=== PATIENT | female | born 1935 | race Two or more races ===

== ENCOUNTER 2020-01-16 21:18 | Inpatient (IN) | payer OTHER ==
[~2020-01-16] VITALS: Ht 157.5 cm; Wt 76.7 kg
[2020-01-16] MEDS ORDERED: ONDANSETRON HCL 4 MG/2 ML VIAL IV ONE (22:30)
[2020-01-16] MEDS ORDERED: MORPHINE SULF INJ 2 MG/ML SYRINGE 1ML IV ONE (22:30)
[2020-01-16 22:33] LABS: Basophils # (auto) 0 10 ^3/uL (0-0.2); Basophils % (auto) 0.1 % (0.0-2.0); Eosinophils # (auto) 0 10 ^3/uL (0-0.8); Monocytes # (auto) 0.9 10 ^3/uL (0-1.3)
[2020-01-16 22:35] LABS: Hematocrit 27.4 % (36.0-46.0); Lymphocytes # (auto) 0.8 10 ^3/uL (0.4-5.4); Lymphocytes % (auto) 6.1 % (10.0-50.0); Mean Corpuscular Hemoglobin 26.9 pg (28.0-32.0); Mean Corpuscular Hgb Conc. 32.9 g/dL (32.0-36.0); Mean Corpuscular Volume 81.9 fL (80.0-100.0); Monocytes % (auto) 6.4 % (0.0-12.0); Neutrophils # (auto) 11.9 10 ^3/uL (1.6-8.6); Neutrophils % (auto) 87.4 % (37.0-80.0); Platelet Count (auto) 283 10^3/uL (140-450); Red Blood Cells 3.35 10^6/uL (4.0-5.20); Red Cell Distribution Width 15.8 % (11.8-14.3); White Blood Cell 13.6 10^3/uL (4.4-10.8)
[2020-01-16 22:48] LABS: INR 1.35 (0.9-1.15); Partial Thromboplastin Time 30.9 sec (23.64-32.05)
[2020-01-16 22:51] LABS: Albumin 3.1 g/dL (3.4-5.0); BUN/Creatinine Ratio 23.2; Calcium 8.2 mg/dL (8.5-10.1); Potassium 3.9 mmol/L (3.5-5.1)
[2020-01-16 23:00] LABS: Bilirubin, Total 0.6 mg/dL (0.2-1.0); Total Protein 7.2 g/dL (6.4-8.2)
[2020-01-17] VITALS (7 sets, daily range): BP systolic 122–148; BP diastolic 52–61
[2020-01-17] MEDS ORDERED: TEMAZEPAM 15 MG CAP PO PRN (00:45)
[2020-01-17] MEDS ORDERED: ACETAMINOPHEN 325 MG TAB PO PRN (00:45)
[2020-01-17] MEDS ORDERED: DEXTROSE (50%) 50ML SYRG IV PRN (00:45)
[2020-01-17] MEDS ORDERED: ONDANSETRON HCL 4 MG/2 ML VIAL IV PRN (00:45)
[2020-01-17] MEDS: MORPHINE SULFATE 4 MG/ML SYR/VIAL IV PRN ×2 (01:44→06:54)
--- NOTE | 2020-01-17 02:00 | NUR ---
PATIENT ARRIVED FROM THE EMERGENCY ROOM TO THE UNIT VIA GURNEY. SHE IS UNABLE TO AMBULATE AT THIS TIME DUE TO THE FRACTURE. SHE IS AO X4 AND ON ROOM AIR. SHE DOES NOT HAVE ANY CHEST PAIN OR SHORTNESS OF BREATH. SHE DOES REPORT PAIN TO THE RIGHT HIP AT THE MOMENT BUT SAYS IT'S ONLY BECAUSE WE JUST TRANSFERRED HER FROM THE GURNEY TO THE BED. BED IS LOCKED IN LOWEST POSITION WITH SIDE RAILS UP X2. WILL CONTINUE TO MONITOR.
[2020-01-17 02:08] LABS: Urine Amorphous Crystal FEW /hpf (None Seen); Urine Bacteria MOD /hpf (None Seen); Urine Blood 2+ /uL (Negative); Urine Hyaline Cast FEW /lpf (0 - 2); Urine WBC 23 /hpf (0 - 5)
[2020-01-17] MEDS ORDERED: FURO20TA3 PO (02:56)
[2020-01-17] MEDS ORDERED: ASCO500T11 PO (02:56)
[2020-01-17] MEDS ORDERED: OMEG100078 PO (02:56)
[2020-01-17] MEDS ORDERED: METF1000 PO (02:56)
[2020-01-17] MEDS ORDERED: GLIM4TAB42 PO (02:56)
[2020-01-17] MEDS ORDERED: MELO1TAB73 PO (02:56)
[2020-01-17] MEDS ORDERED: METO-169 PO (02:56)
[2020-01-17] MEDS ORDERED: CHOL20004 PO (02:56)
[2020-01-17] MEDS ORDERED: SITA100T7 PO ×2 (02:56)
[2020-01-17] MEDS ORDERED: LOVA40TA72 PO (02:56)
[2020-01-17] MEDS ORDERED: AMLO5TAB15 PO (02:56)
[2020-01-17] MEDS: ACCU-CHEK COMFORT CURVE STRIP VI SCH ×3 (05:57→17:58)
[2020-01-17] MEDS: InsuLIN REG 1unit/0.01ml Soln (100units/ml) SC SCH ×3 (05:58→16:47)
--- NOTE | 2020-01-17 06:38 | NUR ---
ANDREW (GRAND DAUGHTER) CALLED AND ASKED IF SHE COULD COME SEE THE PATIENT. I EXPLAINED OUR CURRENT VISITATION POLICY. SHE SAID THAT THE ER DOCTOR SAID THAT SHE WOULD NEED TO HAVE SURGERY DONE TO HER LEG. I EXPLAINED TO HER SINCE WE DO NOT ALLOW VISITORS AT THIS TIME THAT THE DOCTOR WILL CALL AND EXPLAIN THE PROCEDURE IN DETAIL AND ANSWER ALL QUESTIONS AT THAT TIME. SHE SAYS SHE WANTS TO BE CALLED BECAUSE SHE SAYS THAT THE PATIENT DOESN'T REALLY UNDERSTAND [place] THAT WELL. [phone]
[2020-01-17] MEDS: LOSARTAN POTASSIUM 50 MG TAB PO SCH (09:00)
[2020-01-17] MEDS: amLODIPine BESYLATE 5 MG TAB PO SCH (09:00)
[2020-01-17] MEDS: PANTOPRAZOLE 40 MG TAB PO SCH (09:00)
[2020-01-17] MEDS: HYDROcodone-ACET 5/325MG TAB PO PRN ×3 (09:06→20:51)
[2020-01-17] MEDS: ATORVASTATIN 20 MG TAB PO SCH (22:06)
[2020-01-18] MEDS: MORPHINE SULFATE 4 MG/ML SYR/VIAL IV PRN ×2 (03:27→07:55)
[2020-01-18 05:00] VITALS: BP 134/75
[2020-01-18 05:53] LABS: Basophils # (auto) 0.1 10 ^3/uL (0-0.2); Basophils % (auto) 0.5 % (0.0-2.0); Eosinophils # (auto) 0.4 10 ^3/uL (0-0.8); Eosinophils % (auto) 3.2 % (0.0-7.0); Hematocrit 24.8 % (36.0-46.0); Hemoglobin 8.1 g/dL (12.2-16.2); Lymphocytes # (auto) 1.4 10 ^3/uL (0.4-5.4); Lymphocytes % (auto) 12.3 % (10.0-50.0); Mean Corpuscular Hemoglobin 26.7 pg (28.0-32.0); Mean Corpuscular Hgb Conc. 32.7 g/dL (32.0-36.0); Mean Corpuscular Volume 81.6 fL (80.0-100.0); Monocytes # (auto) 0.8 10 ^3/uL (0-1.3); Monocytes % (auto) 6.7 % (0.0-12.0); Neutrophils # (auto) 9.1 10 ^3/uL (1.6-8.6); Neutrophils % (auto) 77.3 % (37.0-80.0); Platelet Count (auto) 266 10^3/uL (140-450); Red Blood Cells 3.04 10^6/uL (4.0-5.20); Red Cell Distribution Width 15.9 % (11.8-14.3); White Blood Cell 11.7 10^3/uL (4.4-10.8)
[2020-01-18] MEDS: InsuLIN REG 1unit/0.01ml Soln (100units/ml) SC SCH ×4 (06:00→18:51)
[2020-01-18 06:07] LABS: INR 1.25 (0.9-1.15); Partial Thromboplastin Time 33.4 sec (23.64-32.05)
[2020-01-18 06:11] LABS: Albumin 2.9 g/dL (3.4-5.0); Calcium 8.3 mg/dL (8.5-10.1); Potassium 3.9 mmol/L (3.5-5.1)
[2020-01-18 06:15] LABS: BUN/Creatinine Ratio 20.5; Bilirubin, Total 0.5 mg/dL (0.2-1.0); Total Protein 6.8 g/dL (6.4-8.2)
[2020-01-18] MEDS: ACCU-CHEK COMFORT CURVE STRIP VI SCH ×5 (06:44→23:58)
--- NOTE | 2020-01-18 07:30 | NUR ---
Opening Shift Note Assumed care of patient, awake and alert. No S/S of distress/SOB or pain. Instructed on POC and to call for assist PRN, will continue to monitor for changes Q1hr and PRN.
--- NOTE | 2020-01-18 08:25 | NUR ---
ECHO SPOKE TO DR WHITE. ECHO IS GOOD. PT CLEARED FOR SURGERY.
[2020-01-18 09:00] VITALS: BP 129/52
[2020-01-18] MEDS: PANTOPRAZOLE 40 MG TAB PO SCH (09:18)
[2020-01-18] MEDS: amLODIPine BESYLATE 5 MG TAB PO SCH (09:20)
[2020-01-18] MEDS: LOSARTAN POTASSIUM 50 MG TAB PO SCH (09:20)
--- NOTE | 2020-01-18 10:00 | NUR ---
HOME MEDICATION SENT BACK WITH PT'S GRANDDAUGHTER
[2020-01-18] MEDS: HYDROcodone-ACET 5/325MG TAB PO PRN ×3 (10:07→22:03)
--- NOTE | 2020-01-18 10:19 | NUR ---
RECEIVED A CALL FROM [employer] PT'S GRANDSON IS IN THE MAIN LOBBY. .PER GRANDSON, DR ALLISON TOLD HIM TO COME TO THE HOSPITAL SO HE CAN TALK TO HIM AFTER THE PATIENT'S SURGERY IS OVER. GRANDSON WILL BE WAITING IN THE MAIN LOBBY. WILL LET WOOD PATTERNMAKER KNOW.
[2020-01-18] MEDS ORDERED: SUCCINYLCHOLINE CHLORIDE 20 MG/ML 10ML VIAL IV ONE (11:43)
[2020-01-18] MEDS ORDERED: LIDOCAINE 1% (LOCAL ANESTH.) PF 5ml SDV ONE (11:43)
[2020-01-18] MEDS ORDERED: ETOMIDATE (2MG/ML) 20ML VIAL IV ONE (11:46)
[2020-01-18] MEDS ORDERED: MIDAZOLAM HCL 1MG/1ML-2 ML VIAL ONE (11:46)
[2020-01-18] MEDS ORDERED: ROCURONIUM 10MG/ML 10ML VIAL IV ONE (11:49)
[2020-01-18] MEDS ORDERED: NALOXONE HCL 0.4 MG/ML VIAL IV PRN (12:30)
[2020-01-18] MEDS ORDERED: ONDANSETRON HCL 4 MG/2 ML VIAL IV PRN (12:30)
[2020-01-18] MEDS ORDERED: ACCU-CHEK COMFORT CURVE STRIP VI ONE (12:30)
[2020-01-18] MEDS ORDERED: HYDROmorphone HCL 2 MG/ML VL IV PRN (12:30)
[2020-01-18] MEDS ORDERED: NEOSTIGMINE 1 MG/ML INJ (10mg/10ML VIAL) ONE (12:41)
[2020-01-18] MEDS ORDERED: GLYCOPYRROLATE 0.2 MG/ML 1ML VIAL ONE (12:41)
[2020-01-18] MEDS: SODIUM CHLOR 0.9% PF (SALINE LOCK) 10ML VIAL/SYR IV SCH ×2 (14:30→22:03)
[2020-01-18] MEDS: LACTATED RINGER'S 1,000 ML IV SCH ×2 (14:30→22:24)
--- NOTE | 2020-01-18 15:20 | NUR ---
Assessment Patient is an 85-year-old female who is alert and oriented. Unable to speak to patient she was getting a procedure done. Assessment was completed with patient son Alvaro ). Per Alvaro prior to admission patient lived home with him and functioned independently. Per Alvaro patient care for her own ADLs. Per Alvaro patient does not have any medical equipment now. Advised Alvaro there is a Social Service consult for SNF placement. Per Alvaro he would like patient to return home with home health stating his daughter is a nurse who can also assist with care for patient and he would want SNF placement to be as last resort. Informed Alvaro patient will need a physical therapy evaluation. Informed Alvaro he has the right to speak to a protective services social worker regarding all care. Informed Alvaro he has the right to participate in all discharge planning. Informed KENYA Callaway a physical therapy evaluation will be needed in order to proceed with order. Addendum: 01/18/20 at 1607 by FLAVIA LUGO Amended: Links added.
[2020-01-18 16:58] VITALS: BP 116/50
--- NOTE | 2020-01-18 18:26 | NUR ---
INCENTIVE SPIROMETER AT BEDSIDE. BILATERAL SCD'S IN PLACE. PT RETURNED I.S. DEMONSTRATION.
--- NOTE | 2020-01-18 19:00 | NUR ---
Opening Shift Note Assumed care of patient, awake and alert. No S/S of distress/SOB. Patient in pain s/p surgery on her right hip. Will give medications when due. Instructed on POC and to call for assist PRN, will continue to monitor for changes Q1hr and PRN. Patient in the lowest possible position with call light within reach.
[2020-01-18 20:00] VITALS: BP 114/53
[2020-01-18] MEDS: cefTRIAXone 1GM/50ML D5W 50 ML IV SCH (20:21)
[2020-01-18] MEDS: MORPHINE SULF INJ 2 MG/ML SYRINGE 1ML IV PRN (20:22)
[2020-01-18 22:00] VITALS: BP 114/53
[2020-01-18] MEDS: ATORVASTATIN 20 MG TAB PO SCH (22:03)
[2020-01-18] MEDS: VANCOMYCIN 1GM/250ML 250 ML IV SCH (22:03)
[2020-01-19] MEDS: InsuLIN REG 1unit/0.01ml Soln (100units/ml) SC SCH ×5 (00:02→23:56)
[2020-01-19] MEDS: HYDROcodone-ACET 5/325MG TAB PO PRN ×2 (03:22→09:22)
--- NOTE | 2020-01-19 03:22 | NUR ---
Patient complained of pain 03/01 Patient prefers Zanoni to morphine for pain, states that it works better and would prefer to take norco over morphine if possible. Will continue to monitor.
[2020-01-19 05:00] VITALS: BP 109/50
[2020-01-19] MEDS: SODIUM CHLOR 0.9% PF (SALINE LOCK) 10ML VIAL/SYR IV SCH ×3 (05:45→21:31)
[2020-01-19] MEDS: ACCU-CHEK COMFORT CURVE STRIP VI SCH ×4 (05:45→23:54)
[2020-01-19 06:24] LABS: Hemoglobin 7.1 g/dL (12.2-16.2)
[2020-01-19 06:27] LABS: Hematocrit 21.9 % (36.0-46.0)
[2020-01-19] MEDS: MORPHINE SULF INJ 2 MG/ML SYRINGE 1ML IV PRN (06:47)
[2020-01-19 06:48] LABS: Potassium 4.1 mmol/L (3.5-5.1)
[2020-01-19 06:55] LABS: Albumin 2.5 g/dL (3.4-5.0); Bilirubin, Total 0.5 mg/dL (0.2-1.0); Calcium 7.7 mg/dL (8.5-10.1); Total Protein 6.4 g/dL (6.4-8.2)
--- NOTE | 2020-01-19 06:58 | NUR ---
Closing note. Patient in lowest possible position with bed rails up x2 and call light within reach. Patient recently received morphine for pain at this time. Will endorse to day shift RN.
--- NOTE | 2020-01-19 08:26 | NUR ---
SPOKE TO PT'S DAUGHTER IN LAW, EDELMIRA KAY'S STATUS UPDATE GIVEN.
[2020-01-19 09:00] VITALS: BP 125/47
[2020-01-19] MEDS: cefTRIAXone 1GM/50ML D5W 50 ML IV SCH (09:10)
[2020-01-19] MEDS: ENOXAPARIN SOD 40 MG/0.4 ML SYRINGE SC SCH (09:18)
[2020-01-19] MEDS: PANTOPRAZOLE 40 MG TAB PO SCH (09:18)
[2020-01-19] MEDS: LOSARTAN POTASSIUM 50 MG TAB PO SCH (09:21)
[2020-01-19] MEDS: amLODIPine BESYLATE 5 MG TAB PO SCH (09:22)
[2020-01-19] MEDS: VANCOMYCIN 1GM/250ML 250 ML IV SCH (11:03)
[2020-01-19 13:00] VITALS: BP 119/46
--- NOTE | 2020-01-19 14:30 | NUR ---
Est energy needs 9773-1820 kcal (25-30 kcal/kg 73.5kg) Est protein needs 59-74g (0.8-1g/kg BW 73.5kg) will reassess prn. Addendum: 01/19/20 at [address] Amended: Links added.
--- NOTE | 2020-01-19 14:40 | NUR ---
SPOKE TO DR Kee ELLIS PER , CONFIRM WITH FAMILY THAT PT WILL HAVE A 24/7 AT HOME SINCE FAMILY DOESN'T WANT HER TO GO TO A SNF AND TO CALL MD AFTER SPEAKING TO FAMILY
--- NOTE | 2020-01-19 15:15 | NUR ---
SPOKE TO MASSIEL, PT'S SON. PER MASSIEL, PT WILL HAVE SOMEONE TO TAKE CARE OF HER 15/03. PT LIVES WITH MASSIEL AND HIS FAMILY AND HIS DAUGHTER, ANDREW IS A REGISTERED NURSE WHO WILL BE ABLE TO HELP WITH HER CARE.
--- NOTE | 2020-01-19 15:17 | NUR ---
MSG LEFT WITH DR. Kee ELLIS's VOICEMAIL.
[2020-01-19] MEDS: levoFLOXacin 500 MG TAB PO SCH (16:37)
[2020-01-19 17:00] VITALS: BP 131/55
--- NOTE | 2020-01-19 17:19 | NUR ---
SS consult regarding home health for Physical therapy and front wheel walker. Contacted Susanne [place] case aide, regarding contracted vendors for referral. Directed to contact [employer] and [employer] [facility] [employer]. Faxed clinical information to [employer] ) and to [facility] (ph [phone]). [facility] to start 24-28 hours after discharge and [employer] to deliver FWW to hospital on 01/20/20. No further social service concerns or needs at this time.
--- NOTE | 2020-01-19 19:00 | NUR ---
Opening Shift Note Assumed care of patient, awake and alert. No S/S of distress/SOB or pain. Instructed on POC and to call for assist PRN, will continue to monitor for changes Q1hr and PRN. Patient in the lowest possible position with bed rails up x2 and call light within reach.
--- NOTE | 2020-01-19 19:30 | NUR ---
IV insertion IV access obtained, via clean sterile technique by inserting 20 gauge catheter at the left hand after 1 attempt. IV secured properly. No trauma to site. Patient tolerated well.
[2020-01-19 20:00] VITALS: BP 130/60
[2020-01-19] MEDS: ATORVASTATIN 20 MG TAB PO SCH (21:31)
[2020-01-19 22:00] VITALS: BP 124/50
--- NOTE | 2020-01-19 22:30 | NUR ---
Patient to receive blood. Hgb 7.1. IV inserted, 20g for blood transfusion. Orders put in for blood. Patient temperature 99.9, gave Tylenol, will recheck before getting and starting blood. Patient is aware, consents are signed.
[2020-01-20] VITALS (8 sets, daily range): BP systolic 120–140; BP diastolic 49–63
--- NOTE | 2020-01-20 00:20 | NUR ---
Received blood at 0020 from blood bank. Checks done with blood bank to ensure it was the right blood for the patient.
--- NOTE | 2020-01-20 00:35 | NUR ---
Blood started. Verified with RNJesenia. Starting vitals 130/63 99.3 99% 114 HR 18 Resp. Will continue to monitor patient.
[2020-01-20] MEDS: SODIUM CHLOR 0.9% PF (SALINE LOCK) 10ML VIAL/SYR IV SCH ×2 (06:21→11:27)
[2020-01-20] MEDS: ACCU-CHEK COMFORT CURVE STRIP VI SCH ×2 (06:21→11:26)
[2020-01-20] MEDS: InsuLIN REG 1unit/0.01ml Soln (100units/ml) SC SCH ×2 (06:24→11:27)
[2020-01-20 06:40] LABS: Hematocrit 25.4 % (36.0-46.0); Hemoglobin 8.5 g/dL (12.2-16.2)
--- NOTE | 2020-01-20 09:15 | NUR ---
Summers catheter dc'd Order to discontinue summers catheter. Summers dc'd with clean technique following deflation of balloon. Patient tolerated well with no complaints of pain. Instructed to call KENYA pompa when need to urinate arises. emptied 350ml of pale yellow urine with sediment from summers. Continue care.
[2020-01-20] MEDS: levoFLOXacin 500 MG TAB PO SCH (09:27)
[2020-01-20] MEDS: amLODIPine BESYLATE 5 MG TAB PO SCH (09:28)
[2020-01-20] MEDS: ENOXAPARIN SOD 40 MG/0.4 ML SYRINGE SC SCH (09:29)
[2020-01-20] MEDS: PANTOPRAZOLE 40 MG TAB PO SCH (09:29)
[2020-01-20] MEDS: LOSARTAN POTASSIUM 50 MG TAB PO SCH (09:29)
[2020-01-20] MEDS: HYDROcodone-ACET 5/325MG TAB PO PRN ×2 (09:30→14:59)
[2020-01-20] MEDS ORDERED: HYDR-4833 PO ×2 (11:36→17:38)
[2020-01-20] MEDS ORDERED: ENO40SY SC (11:36)
[2020-01-20] MEDS ORDERED: LEVO-28 PO (11:36)
--- NOTE | 2020-01-20 11:47 | NUR ---
CALLED AND UPDATED SON MASSIEL ON POC PASSWORD VERIFIED.
--- NOTE | 2020-01-20 12:24 | NUR ---
CALL PLACE TO [facility] RE: FWW. ACCORDING TO ODELL FWW IS EN ROUTE AND WILL ARRIVE WITHIN THE HOUR
[2020-01-24 01:52] LABS: Immunoglobulin G, Serum 1326 mg/dL (586-1602)
== END 2020-01-20 15:19 | disposition home health service (06) | DRG 481 ==
LOC: ER 21:18 → OVERFLOW 21:19 → CENTRAL 01-17 02:00
PROVIDERS: ADMIT Nurse Practitioner; ATTEND Internal Medicine
PROC: BW1CZZZ Fluoroscopy of Lower Extremity (ICD-10-PCS; 2020-01-18)
PROC: 0QS634Z Reposition Right Upper Femur with Internal Fixation Device, Percutaneous Approach (ICD-10-PCS; principal; 2020-01-18 11:47)
PROC: 30233N1 Transfusion of Nonautologous Red Blood Cells into Peripheral Vein, Percutaneous Approach (ICD-10-PCS; 2020-01-20)
DX: S72.141A Displaced intertrochanteric fracture of right femur, initial encounter for closed fracture (principal); E44.0 Moderate protein-calorie malnutrition; N39.0 Urinary tract infection, site not specified; D62 Acute posthemorrhagic anemia; W18.2XXA Fall in (into) shower or empty bathtub, initial encounter; E11.9 Type 2 diabetes mellitus without complications; I10 Essential (primary) hypertension; E78.5 Hyperlipidemia, unspecified; Z88.2 Allergy status to sulfonamides; Z88.0 Allergy status to penicillin; Z90.710 Acquired absence of both cervix and uterus; Z68.30 Body mass index [BMI] 30.0-30.9, adult; Z79.84 Long term (current) use of oral hypoglycemic drugs; Z79.899 Other long term (current) drug therapy; Z83.3 Family history of diabetes mellitus; J43.9 Emphysema, unspecified; Z11.59 Encounter for screening for other viral diseases
CPT/HCPCS: 36415; 51702; 70450; 71045; 71250; 72125; 73502; 74176; 76000; 80053; 81001; 82550; 82784; 82962; 83036; 83516; 85014; 85018; 85025; 85610; 85730; 86225; 86235; 86850; 86900; 86901; 86920; 93306; 96374; 96375; 96376; 97110; 97116; 97163; 97530; A4565; C1713; G0378; J0330; J0696; J1815; J2250; J2405; J7060

== ENCOUNTER 2020-01-22 18:41 | Inpatient (IN) | payer OTHER ==
[~2020-01-22] VITALS: Ht 152.4 cm; Wt 81.6 kg
[~2020-01-22 18:41] MED LIST: AMLO5TAB15 PO; ASCO500T11 PO; CHOL20004 PO; ENO40SY SC; FURO20TA3 PO; GLIM4TAB42 PO; HYDR-4833 PO; LEVO-28 PO; LOVA40TA72 PO; METF1000 PO; METO-169 PO; OMEG100078 PO; SITA100T7 PO
[2020-01-22] MEDS ORDERED: SODIUM CHLORIDE 0.9% 500 ML IVB ONE (19:00)
[2020-01-22] MEDS ORDERED: ONDANSETRON HCL 4 MG/2 ML VIAL IV ONE (19:00)
[2020-01-22 19:20] LABS: Basophils % (auto) 0.4 % (0.0-2.0); Eosinophils # (auto) 0.4 10 ^3/uL (0-0.8); Hematocrit 24.4 % (36.0-46.0); Lymphocytes # (auto) 1.7 10 ^3/uL (0.4-5.4); Nucleated Red Blood Cells % 0.1 %
[2020-01-22 19:21] LABS: Basophils # (auto) 0.1 10 ^3/uL (0-0.2); Eosinophils % (auto) 3.2 % (0.0-7.0); Hemoglobin 8.1 g/dL (12.2-16.2); Lymphocytes % (auto) 13.9 % (10.0-50.0); Mean Corpuscular Hemoglobin 28.1 pg (28.0-32.0); Mean Corpuscular Hgb Conc. 33.3 g/dL (32.0-36.0); Mean Corpuscular Volume 84.3 fL (80.0-100.0); Monocytes % (auto) 8.3 % (0.0-12.0); Neutrophils # (auto) 9.2 10 ^3/uL (1.6-8.6); Neutrophils % (auto) 74.2 % (37.0-80.0); Platelet Count (auto) 416 10^3/uL (140-450); Red Cell Distribution Width 19.3 % (11.8-14.3); White Blood Cell 12.4 10^3/uL (4.4-10.8)
[2020-01-22 19:33] LABS: Albumin 2.3 g/dL (3.4-5.0); Calcium 7.9 mg/dL (8.5-10.1); Potassium 3.7 mmol/L (3.5-5.1)
[2020-01-22 19:36] LABS: BUN/Creatinine Ratio 20.7; Bilirubin, Total 0.7 mg/dL (0.2-1.0); Total Protein 6.5 g/dL (6.4-8.2)
[2020-01-22] MEDS ORDERED: ACETAMINOPHEN 325 MG TAB PO PRN (21:00)
[2020-01-22] MEDS ORDERED: HYDROcodone-ACET 5/325MG TAB PO PRN (21:00)
[2020-01-22] MEDS ORDERED: DOCUSATE SOD 100 MG CAP PO PRN (21:00)
[2020-01-22] MEDS: SODIUM CHLORIDE 0.9% 1,000 ML IV SCH (21:00)
[2020-01-22 22:02] LABS: Urine Bacteria NONE SEEN /hpf (None Seen); Urine Blood Negative /uL (Negative); Urine Specific Gravity 1.008 (1.001-1.035); Urine WBC <1 /hpf (0 - 5)
--- NOTE | 2020-01-22 22:35 | NUR ---
MS admit from [facility] admitted to tele/MS. Patient oriented to French Ortiz, primary RN, unit, room, bed, and unit policies regarding patient care and visiting hours. Patient weighed by bedscale and encouraged to call if they need something. All questions and concerns addressed, patient verbalized understanding.
[2020-01-22 22:55] VITALS: BP 124/51
[2020-01-22 23:00] VITALS: BP 124/51
[2020-01-22] MEDS: ONDANSETRON HCL 4 MG/2 ML VIAL IV PRN (23:15)
[2020-01-23 05:00] VITALS: BP 126/56
[2020-01-23 05:46] LABS: Urine Bacteria FEW /hpf (None Seen); Urine Blood Negative /uL (Negative); Urine Specific Gravity 1.003 (1.001-1.035); Urine WBC 1 /hpf (0 - 5)
[2020-01-23 06:05] LABS: Mean Corpuscular Volume 85.9 fL (80.0-100.0)
[2020-01-23 06:07] LABS: Hematocrit 23.6 % (36.0-46.0); Mean Corpuscular Hgb Conc. 33.8 g/dL (32.0-36.0); Platelet Count (auto) 376 10^3/uL (140-450); Red Blood Cells 2.75 10^6/uL (4.0-5.20); White Blood Cell 10.9 10^3/uL (4.4-10.8)
[2020-01-23 06:21] LABS: Potassium 3.4 mmol/L (3.5-5.1)
[2020-01-23 06:28] LABS: BUN/Creatinine Ratio 24.2; Calcium 7.7 mg/dL (8.5-10.1)
[2020-01-23] MEDS: ONDANSETRON HCL 4 MG/2 ML VIAL IV PRN (06:49)
--- NOTE | 2020-01-23 06:50 | NUR ---
CRITICAL LAB Received critical lab result of a critically low blood glucose. Glucose level was 47. Upon assessment, the patient states that she felt as if she was trembling. The patient was given 2 cartons of juice to drink. Will reassess the patient's blood glucose level and page hospitalist.
[2020-01-23] MEDS: SODIUM CHLORIDE 0.9% 1,000 ML IV SCH ×2 (07:00→15:00)
[2020-01-23 07:01] LABS: Basophils % (manual) 0 (0.0-2.0); Blast Cells 0; Monocytes % (manual) 0 (0-12); Promyelocytes % 0; Reactive Lymphocytes 0
--- NOTE | 2020-01-23 07:10 | NUR ---
GLUCOSE REASSESSED The patient's glucose level has risen to 96. The patient is currently asymptomatic. Hospitalist did not return page. Will endorse to day shift RN.
[2020-01-23 07:46] LABS: Band Neutrophils % (manual) 1; Eosinophils % (manual) 2 (0-7); Lymphocytes % (manual) 18 (10.0-50.0); Metamyelocytes % 1; Myelocytes % 3
[2020-01-23 08:00] VITALS: BP 102/58
[2020-01-23 08:46] VITALS: BP 127/53
--- NOTE | 2020-01-23 09:33 | NUR ---
Attempted PT eval. Pt has been having constant loose stools. Will hold and attempt again later this afternoon.
[2020-01-23] MEDS: levoFLOXacin 500MG 100 ML IV SCH (09:56)
[2020-01-23] MEDS: ENOXAPARIN SOD 40 MG/0.4 ML SYRINGE SC SCH (09:58)
[2020-01-23] MEDS: ATORVASTATIN 20 MG TAB PO SCH (09:58)
[2020-01-23] MEDS: ASCORBIC ACID 500 MG TAB PO SCH (09:58)
[2020-01-23] MEDS: METOPROLOL SUCCINATE XL 50 MG TAB PO SCH (09:59)
[2020-01-23] MEDS: FUROSEMIDE 20 MG TAB PO SCH (09:59)
[2020-01-23] MEDS: amLODIPine BESYLATE 5 MG TAB PO SCH (09:59)
--- NOTE | 2020-01-23 11:10 | NUR ---
Pain Patient reports right hip pain, non-radiating and rates it as a 8/10. Patient request pain medication. Will administer PRN as per order.
[2020-01-23] MEDS: MORPHINE SULF INJ 2 MG/ML SYRINGE 1ML IV PRN ×2 (11:18→17:18)
--- NOTE | 2020-01-23 11:48 | NUR ---
Re Pain Patient states relief of pain and now rates it a 2/10 which is a tolerable level fo her. No further action needed at this time. Will continue to monitor.
[2020-01-23 12:42] VITALS: BP 127/93
--- NOTE | 2020-01-23 15:43 | NUR ---
Dr. Mcginnis at bed side discussing POC with patient
[2020-01-23] MEDS ORDERED: PANTOPRAZOLE 40 MG TAB PO ONE (16:00)
[2020-01-23] MEDS ORDERED: METO1TAB9 PO (16:15)
[2020-01-23] MEDS ORDERED: INSU1INJ19 SC (16:15)
[2020-01-23] MEDS ORDERED: AMLO10TA13 PO (16:15)
[2020-01-23] MEDS ORDERED: LOSA-39 PO (16:15)
[2020-01-23] MEDS ORDERED: SITA100T7 PO (16:15)
[2020-01-23 17:02] VITALS: BP 136/53
--- NOTE | 2020-01-23 17:18 | NUR ---
ss consult Per ss consult advanced directive. [facility] has provided patient with advanced directive. Addendum: 01/23/20 at 1719 by Evita LUGO Amended: Links added.
[2020-01-23] MEDS: HYDROcodone-ACET 5/325MG TAB PO PRN (21:04)
--- NOTE | 2020-01-23 21:12 | NUR ---
1899. REPORT OBTAINED ON PATIENT. 1999. PATIENT SEEN. RESTING WELL IN BED. COMPLAINED OF PAIN 5/10 RIGHT HIP SURGICAL SITE INTACT. 2103. MEDICATED FOR PAIN.
[2020-01-23 22:30] VITALS: BP 111/51
[2020-01-24] MEDS: SODIUM CHLORIDE 0.9% 1,000 ML IV SCH ×3 (03:05→23:00)
[2020-01-24] MEDS: MORPHINE SULF INJ 2 MG/ML SYRINGE 1ML IV PRN ×2 (03:11→12:34)
[2020-01-24 05:22] VITALS: BP 125/55
[2020-01-24 05:33] LABS: Hematocrit 23.9 % (36.0-46.0); Mean Corpuscular Hemoglobin 28.8 pg (28.0-32.0)
[2020-01-24 05:36] LABS: Hemoglobin 8.2 g/dL (12.2-16.2); Mean Corpuscular Hgb Conc. 34.1 g/dL (32.0-36.0); Mean Corpuscular Volume 84.4 fL (80.0-100.0); Platelet Count (auto) 414 10^3/uL (140-450); Red Blood Cells 2.84 10^6/uL (4.0-5.20); Red Cell Distribution Width 18.8 % (11.8-14.3); White Blood Cell 9.8 10^3/uL (4.4-10.8)
[2020-01-24 05:52] LABS: Calcium 7.7 mg/dL (8.5-10.1); Magnesium 1.2 mg/dL (1.6-2.6); Potassium 3.3 mmol/L (3.5-5.1)
[2020-01-24 05:54] LABS: BUN/Creatinine Ratio 13.1
[2020-01-24 05:57] LABS: Basophils % (manual) 0 (0.0-2.0); Blast Cells 0; Metamyelocytes % 0; Promyelocytes % 0; Reactive Lymphocytes 0
[2020-01-24 07:59] LABS: Band Neutrophils % (manual) 2; Eosinophils % (manual) 5 (0-7); Lymphocytes % (manual) 18 (10.0-50.0); Monocytes % (manual) 4 (0-12); Myelocytes % 1
[2020-01-24 09:14] VITALS: BP 141/57
[2020-01-24] MEDS: levoFLOXacin 500MG 100 ML IV SCH (10:43)
[2020-01-24] MEDS: PANTOPRAZOLE 40 MG TAB PO SCH (10:44)
[2020-01-24] MEDS: ASCORBIC ACID 500 MG TAB PO SCH (10:44)
[2020-01-24] MEDS: ATORVASTATIN 20 MG TAB PO SCH (10:44)
[2020-01-24] MEDS: METOPROLOL SUCCINATE XL 50 MG TAB PO SCH (10:44)
[2020-01-24] MEDS: FUROSEMIDE 20 MG TAB PO SCH (10:45)
[2020-01-24] MEDS: ENOXAPARIN SOD 40 MG/0.4 ML SYRINGE SC SCH (10:45)
[2020-01-24] MEDS: amLODIPine BESYLATE 5 MG TAB PO SCH (10:46)
[2020-01-24 13:21] VITALS: BP 130/56
--- NOTE | 2020-01-24 15:04 | NUR ---
DOCTOR JUNIOR DUARTE INFORMED OF MAG LEVEL OF 1.2 NEW ORDERS RECEIVED SEE EMR FOR ORDERS.
[2020-01-24] MEDS: MAGNESIUM SULFATE 1GM/100ML 100 ML IV SCH ×3 (15:19→18:49)
[2020-01-24 16:55] VITALS: BP 134/54
--- NOTE | 2020-01-24 16:58 | NUR ---
IV removal Patient stated Iv was painfuland requested for IV to be removed. IV Removed with clean sterile technique, catheter fully intact. Pressure dressing applied to site. Patient tolerated well. NOTE:
--- NOTE | 2020-01-24 17:00 | NUR ---
IV insertion IV access obtained, via clean sterile technique by inserting 22 gauge catheter at left a/c after 1 attempt. IV secured properly. No trauma to site. Patient tolerated well.
--- NOTE | 2020-01-24 19:05 | NUR ---
IV removal IV infiltrated and removed with clean sterile technique, catheter fully intact. Pressure dressing applied to site. Patient tolerated well. IV insertion IV access obtained, via clean sterile technique by inserting 20 gauge catheter at right A/C after 1 attempt. IV secured properly. No trauma to site. Patient tolerated procedure well.
--- NOTE | 2020-01-24 20:40 | NUR ---
SON, MASSIEL CALLED. FAMILY WANT PATIENT TO BE TRANSFERRED TO [facility] AND NOWHERE ELSE. HIS NAME IS MASSIEL. HIS PHONE NUMBER IS: [phone]. PATIENT NOTIFIED.
[2020-01-24 22:00] VITALS: BP 124/55
[2020-01-25] MEDS: HYDROcodone-ACET 5/325MG TAB PO PRN (04:53)
--- NOTE | 2020-01-25 04:53 | NUR ---
MEDICATED FOR PAIN RIGHT HIP. 01/30
[2020-01-25 05:48] VITALS: BP 147/68
[2020-01-25 09:00] VITALS: BP 146/63
[2020-01-25] MEDS: MORPHINE SULF INJ 2 MG/ML SYRINGE 1ML IV PRN (10:16)
[2020-01-25] MEDS: levoFLOXacin 500MG 100 ML IV SCH (10:19)
[2020-01-25] MEDS: ASCORBIC ACID 500 MG TAB PO SCH (10:19)
[2020-01-25] MEDS: ENOXAPARIN SOD 40 MG/0.4 ML SYRINGE SC SCH (10:19)
[2020-01-25] MEDS: PANTOPRAZOLE 40 MG TAB PO SCH (10:20)
[2020-01-25] MEDS: amLODIPine BESYLATE 5 MG TAB PO SCH (10:20)
[2020-01-25] MEDS: ATORVASTATIN 20 MG TAB PO SCH (10:21)
[2020-01-25] MEDS: FUROSEMIDE 20 MG TAB PO SCH (10:21)
[2020-01-25] MEDS: SODIUM CHLORIDE 0.9% 1,000 ML IV SCH (10:24)
--- NOTE | 2020-01-25 11:19 | NUR ---
SPOKE WITH PATIENTS SON MASSIEL.PER MASSIEL HE DOESN'T WANT MOTHER GOING TO SNF AND WOULD LIKE HER D/C WITH HOME HEALTH. PER MASSIEL [facility] HAS ALREADY CONTACTED HIM AND SET UP SERVICES. CALLED DOCTOR JUNIOR AND INFORMED HIM OF FAMILY REQUEST PER PATIENT OKAY TO D/C HOME WITH HOME HEALTH.
[2020-01-25] MEDS: METOPROLOL SUCCINATE XL 50 MG TAB PO SCH (11:53)
--- NOTE | 2020-01-25 12:32 | NUR ---
assessment Patient is a 85 year old female. Per patients son Alvaro prior to admission patient lived with him and family and needed assistance. Per Alvaro he is refusing SNF for patient. Patient to return home with family on discharge. Patient has an order for home health with PT. MD order has been sent to [facility]. Lew Mota at [place] service will start tomorrow. order has been given to [place] manager of case for auth. Alvaro verbalized understanding and agreed to discharge plan home with home health. Addendum: 01/25/20 at 1240 by Evita LUGO Amended: Links added.
[2020-01-25 13:00] VITALS: BP 115/49
--- NOTE | 2020-01-25 13:00 | NUR ---
I faxed home health order to [facility]-requesting authorization for [facility].
--- NOTE | 2020-01-25 14:40 | NUR ---
Summers catheter dc'd Order to discontinue summers catheter. Summers dc'd with clean technique following deflation of balloon. Patient tolerated well with no complaints of pain. Continue care.
--- NOTE | 2020-01-25 16:51 | NUR ---
Discharge instructions given as ordered. Encourage to follow up with PMD as instructed. All questions and concerns addressed. Patient verbalized understanding. Medication reconciliation form completed and copy given to patient. No home medications held in Pharmacy and none returned to patient, and no needed vaccines given. IV removed with catheter intact, pressure dressing applied. Patient taken to vehicle via wheelchair with all personal belongings, accompanied by staff and family members waiting in front lobby for transportation home. No distress noted at time of departure.
== END 2020-01-25 16:51 | disposition home health service (06) | DRG 392 ==
LOC: ER 18:41 → EDBD 18:41 → OVERFLOW 18:42 → WEST WING 22:50
PROVIDERS: ADMIT Hospitalist; ATTEND Internal Medicine
DX: R11.2 Nausea with vomiting, unspecified (principal); D64.9 Anemia, unspecified; I10 Essential (primary) hypertension; E11.9 Type 2 diabetes mellitus without complications; E78.5 Hyperlipidemia, unspecified; R33.9 Retention of urine, unspecified; Z90.710 Acquired absence of both cervix and uterus; Z88.0 Allergy status to penicillin; Z88.5 Allergy status to narcotic agent; Z88.2 Allergy status to sulfonamides; T40.605A Adverse effect of unspecified narcotics, initial encounter
CPT/HCPCS: 36415; 74176; 80048; 80053; 80061; 81001; 82962; 83690; 83735; 85007; 85025; 85027; 93005; 97110; 97116; 97163; 97530; G0378; J1956; J2405

== ENCOUNTER 2024-07-12 18:09 | Inpatient (IN) | payer OTHER ==
[~2024-07-12] VITALS: Ht 152.4 cm; Wt 98.2 kg
[~2024-07-12 18:09] MED LIST changes: +AMLO1TAB23 PO; -AMLO5TAB15 PO; +INSU1INJ19 SC; -LEVO-28 PO; +LEVO500T91 PO; +LOSA-535 PO; -METO-169 PO; +METO1TAB9 PO; +OMEG-20 PO; -OMEG100078 PO
--- NOTE | 2024-07-12 18:40 | ED.PDOC ---
History of Present Illness HPI Comments 89 y/o F, with a Hx of DM, HLD, HTN, and thyroid disease s/p thyroidectomy, presents with granddaughter for c/o ALOC w/confusion and generalized weakness, today. Per granddaughter, patient has been altered for the past 2x weeks and has been progressively getting worse since, with increasing confusion and weakness. Patient was stated to have seen her PCP on 07/10/24 for symptoms and was Dx with a UTI but never placed on Abx Tx regimen since then. Patient was also reported to have had a blood pressure of 180/100 and a SpO2 of 98%RA at home, earlier, today. Patient has no fever, chills, dizziness, or other reported associated symptoms or modifiers at this time. Time Seen by MD: 18:25 Reviewed Notes: Nurses Notes, Medications, Allergies Allergies: Coded Allergies: Codeine (Verified Allergy, Unknown, 01/16/20) Penicillins (Verified Allergy, Unknown, 01/16/20) Sulfa Antibiotics (Verified Allergy, Unknown, 01/16/20) Home Meds Active Scripts Losartan Potassium (Losartan Potassium) 100 Mg Tab, 1 TAB PO DAILY, #90 TAB 1 Refill Prov:01/23/20 Insulin Glargine (Basaglar Kwikpen) 100 Unit/Ml Inj, 50 UNIT SC QPM for 90 Days, #45 INJ Prov:01/23/20 Sitagliptin Phosphate (Januvia) 100 Mg Tab, 100 MG PO DAILY for 90 Days, #90 TAB Prov:01/23/20 Amlodipine Besylate (Amlodipine Besylate) 10 Mg Tab, 1 TAB PO DAILY, #90 TAB 1 Refill Prov:01/23/20 Metoprolol Succinate (Metoprolol Succinate Er) 100 Mg Tab, 100 MG PO DAILY for 90 Days, #90 TAB Prov:01/23/20 Hydrocodone-Acetaminophen ([place] 5/325MG) 1 Tab Tb, 1 TAB PO Q6HP PRN, #20 TAB . Prov:KING ELLIS MD 01/20/20 Levofloxacin Hemihydrate (LEVOFLOXACIN) 500 Mg Tab, 500 MG PO DAILY, #11 TAB Prov:KING ELLIS MD 01/20/20 Enoxaparin Sodium (Lovenox) 40 Mg/0.4 Ml Ij, 40 MG SC DAILY, #12 INJ Prov:KING ELLIS MD 01/20/20 Reported Medications Ascorbic Acid (VITAMIN C TABLET) 500 Mg Tb, 1 TAB PO DAILY, #30 TAB 3 Refills 01/17/20 [place]-3 Fatty Acids (FISH OIL) 1,000 Mg Cap, 1000 MG PO, CAP 01/17/20 Cholecalciferol (D3) 50 Mcg Cap, 50 MCG PO, CAP 01/17/20 Lovastatin (Lovastatin) 40 Mg Tab, 1 TAB PO DAILY, #30 TAB 5 Refills 01/17/20 Metformin Hydrochloride (Glucophage) 1,000 Mg Tab, 1 TAB PO BID, #60 TAB 5 Refills 01/17/20 Furosemide (Furosemide) 20 Mg Tab, 1 TAB PO DAILY, #90 TAB 1 Refill 01/17/20 Glimepiride (Glimepiride) 4 Mg Tab, 4 MG PO DAILY for 30 Days, MG 01/17/20 Information Source: Relative (GrandChild) Mode of Arrival: Wheelchair Severity: Moderate Timing: Weeks Duration: Since onset Prehospital treatment: Other (see HPI) Past Medical History PAST MEDICAL HISTORY: DM, High Lipids, HTN, Thyroid Surgical History: Hysterectomy, Thyroidectomy Surgical History (Other): right hip and knee Sx, cataract Sx SOLE SKIVER History: No Pertinent SOLE SKIVER History Family History Family History: Reviewed,noncontributory to illness, No family hx of Cancer, No family hx of Heart kelly, No family hx of HTN, No family hx ofKidney kelly, No family hx of Liver kelly, No family hx of Lung kelly, No family hx of Stroke, Family hx of DM Social History Smoker: Non-Smoker Alcohol: Denies ETOH Use Drugs: Denies Drug Use Lives In: Home Constitutional: denies: chills, diaphoresis, fatigue, fever, malaise, sweats, weakness, others EENTM: denies: blurred vision, double vision, ear bleeding, ear discharge, ear drainage, ear pain, ear ringing, eye pain, eye redness, hearing loss, mouth pain, mouth swelling, nasal discharge, nose bleeding, nose congestion, nose pain, photophobia, tearing, throat pain, throat swelling, voice changes, others Respiratory: denies: cough, hemoptysis, orthopnea, SOB at rest, shortness of breath, SOB with excertion, stridor, wheezing, others Cardiovascular: denies: chest pain, dizzy spells, diaphoresis, Dyspnea on exertion, edema, irregular heart beat, left arm pain, lightheadedness, palpitations, PND, syncope, others Gastrointestinal: denies: abdomen distended, abdominal pain, blood streaked bowels, constipated, diarrhea, dysphagia, difficulty swallowing, hematemesis, melena, nausea, poor appetite, poor fluid intake, rectal bleeding, rectal pain, vomiting, others Genitourinary: denies: abnormal vagina bleeding, burning, dyspareunia, dysuria, flank pain, frequency, hematuria, incontinence, pain, , vagina discharge, urgency, others Neurological: reports: weakness (generalized ), others (ALOC w/confusion); denies: dizziness, fainting, headache, left sided numbness, left sided weakness, numbness, paresthesia, pre-existing deficit, right sided numbness, right sided weakness, seizure, speech problems, tingling, tremors Physical Exam General Appearance: Moderate Distress HEENT: Normal ENT Inspection, Pharynx Normal, TMs Normal Neck: Full Range of Motion, Non-Tender, Normal, Normal Inspection Respiratory: Chest Non-Tender, Lungs Clear, No Accessory Muscle Use, No Respiratory Distress, Normal Breath Sounds Cardiovascular: No Edema, No JVD, No Murmur, No Gallop, Normal Peripheral Pulses, Regular Rate/Rhythm Breast Exam: Deferred Gastrointestinal: No Organomegaly, Non Tender, No Pulsatile Mass, Normal Bowel Sounds, Soft Genitalia: Deferred Pelvic: Deferred Rectal: Deferred Extremities: No calf tenderness, Normal capillary refill, Normal inspection, Normal range of motion, Non-tender, No pedal edema Musculoskeletal : Apperance: Normal Neurologic: Alert, newspaper writer II-XII nml as Tested, No Motor Deficits, Normal Affect, Normal Mood, No Sensory Deficits Cerebellar Function: Normal Reflexes: Normal Skin: Dry, Normal Color, Warm Lymphatic: No Adenopathy Was a procedure done? Was a procedure done?: No EKG EKG : Pulse Rate (adult): 96 [place]: Normal Cardiac Rhythm: NSR Block: None Hypertrophy: None ST: Normal Differential Dx Considerations may include: UTI, electrolyte imbalance, encephalopathy, viral syndrome, TIA, CVA X-Ray, Labs, Meds, VS Vital Signs Date Time Temp Pulse Resp B/P (MAP) Pulse Ox O2 Delivery O2 Flow Rate FiO2 07/12/24 19:10 96 07/12/24 18:42 96 07/12/24 18:25 98.3 98 18 185/111 (135) 96 169/77 (107) Lab Test 07/12/24 18:48 07/12/24 18:38 07/12/24 18:23 Range/Units POC Glucose 116 H 70-106 mg/dl Urine Color Colorless Yellow Urine Clarity Turbid H Clear Urine pH 5.5 5.0-9.0 Urine Specific [place] 1.012 1.001-1.035 Urine Protein 2+ H Negative Urine Ketones Trace Negative Urine Blood Negative Negative /uL Urine Nitrite Negative Negative Urine Bilirubin Negative Negative Urine Urobilinogen Normal Negative mg/dL Urine Leukocyte Esterase 3+ Negative /uL Urine RBC 3 0 - 4 /hpf Urine WBC 185 0 - 5 /hpf Urine Squamous Epithelial Cells Few <5 /hpf Urine Bacteria Few H None Seen /hpf Urine Hyaline Casts Few 0 - 2 /lpf Urine Mucus Few None Seen Urine Glucose Normal Normal mg/dL White Blood Count 9.7 4.4-10.8 10^3/uL Red Blood Count 4.10 4.0-5.20 10^6/uL Hemoglobin 12.7 12.2-16.2 g/dL Hematocrit 38.0 36.0-46.0 % Mean Corpuscular Volume 92.7 80.0-100.0 fL Mean Corpuscular Hemoglobin 31.0 28.0-32.0 pg Mean Corpuscular Hemoglobin Concent 33.4 32.0-36.0 g/dL Red Cell Distribution Width 14.2 11.8-14.3 % Platelet Count 241 140-450 10^3/uL Mean Platelet Volume 9.0 6.9-10.8 fL Neutrophils (%) (Auto) 57.8 37.0-80.0 % Lymphocytes (%) (Auto) 31.0 10.0-50.0 % Monocytes (%) (Auto) 6.5 0.0-12.0 % Eosinophils (%) (Auto) 4.0 0.0-7.0 % Basophils (%) (Auto) 0.7 0.0-2.0 % Neutrophils # (Auto) 5.6 1.6-8.6 10 ^3/uL Lymphocytes # (Auto) 3.0 0.4-5.4 10 ^3/uL Monocytes # (Auto) 0.6 0-1.3 10 ^3/uL Eosinophils # (Auto) 0.4 0-0.8 10 ^3/uL Basophils # (Auto) 0.1 0-0.2 10 ^3/uL Nucleated Red Blood Cells 0.1 % Sodium Level 140 136-145 mmol/L Potassium Level 4.1 3.5-5.1 mmol/L Chloride Level 107 98-107 mmol/L Carbon Dioxide Level 19 L 20-31 mmol/L Anion Gap 14 5-15 Blood Urea Nitrogen 30 H 9-23 mg/dL Creatinine 1.42 H 0.550-1.02 mg/dL Glomerular Filtration Rate Calc 36 >90 mL/min BUN/Creatinine Ratio 21.1 H 10.0-20.0 Serum Glucose 107 H 74-106 mg/dL Calcium Level 10.1 8.7-10.4 mg/dL PROCEDURE(s): HWOCT - HEAD WITHOUT CONTRAST IMPRESSION: 1. No acute intracranial abnormality. 2. Mild cerebral volume loss and mild chronic microvascular ischemic change. 3. Chronic left maxillary sinusitis. The patient's CBC is within normal limits The chemistry panel shows a BUN of 32 creatinine of 1.42 At this time, the urine test is positive for UTI The patient was being given Levaquin 500 mg IV piggyback The patient was being admitted to the hospitalist Images Reviewed?: Images reviewed and evaluated by me Time of 1ST Reevaluation: 18:55 Reevaluation 1ST: Unchanged Time of 2ND Reevaluation: 22:14 Reevaluation 2ND: Unchanged Patient Education/Counseling: Diagnosis, Treatment, Prognosis Family Education/Counseling: Diagnosis, Treatment, Prognosis Departure 1 Departure Time of Disposition: 22:14 Impression: Primary Impression: Generalized weakness Additional Impressions: UTI (urinary tract infection) Qualified Codes: N30.00 - Acute cystitis without hematuria Dehydration Disposition: ADMITTED INPATIENT Admit to: Med Surg Condition: Fair Critical Care Note Critical Care Time?: No Stability Stability form required: Yes Unstable for transfer: ED Physician Assesment (Clinical assesment) Heart Score Heart Score: Heart Score Response (Comments) Value History Moderate Suspicious 1 EKG Normal 0 Age >65 2 Risk Factors >3 or Hx ASHD 2 Troponin Normal limit 0 Total 5 I personally scribed for VIRAJ HOLBROOK MD ([email or web address]) on 07/12/24 at 18:40. Electronically submitted by Ken Barrow ([email or web address]). I personally scribed for VIRAJ HOLBROOK MD ([email or web address]) on 07/12/24 at 19:10. Electronically submitted by Ken Barrow ([email or web address]). I personally scribed for VIRAJ HOLBROOK MD ([email or web address]) on 07/12/24 at 19:44. Electronically submitted by Ken Barrow ([email or web address]). VIRAJ HOLBROOK MD Jul 12, 2024 18:40
[2024-07-12 19:01] LABS: Basophils # (auto) 0.1 10 ^3/uL (0-0.2); Basophils % (auto) 0.7 % (0.0-2.0); Eosinophils # (auto) 0.4 10 ^3/uL (0-0.8); Hemoglobin 12.7 g/dL (12.2-16.2); Mean Corpuscular Hgb Conc. 33.4 g/dL (32.0-36.0); Mean Corpuscular Volume 92.7 fL (80.0-100.0); Monocytes # (auto) 0.6 10 ^3/uL (0-1.3); Monocytes % (auto) 6.5 % (0.0-12.0); Neutrophils # (auto) 5.6 10 ^3/uL (1.6-8.6); Neutrophils % (auto) 57.8 % (37.0-80.0); Nucleated Red Blood Cells % 0.1 %; Platelet Count (auto) 241 10^3/uL (140-450); Red Cell Distribution Width 14.2 % (11.8-14.3); White Blood Cell 9.7 10^3/uL (4.4-10.8)
[2024-07-12 19:03] LABS: Chloride 107 mmol/L (98-107); Potassium 4.1 mmol/L (3.5-5.1); Sodium 140 mmol/L (136-145)
[2024-07-12 19:04] LABS: Anion Gap 14 (5-15); Calcium 10.1 mg/dL (8.7-10.4); Carbon Dioxide 19 mmol/L (20-31)
[2024-07-12 19:09] LABS: BUN/Creatinine Ratio 21.1 (10.0-20.0); Blood Urea Nitrogen 30 mg/dL (9-23); Glucose 107 mg/dL (74-106)
--- NOTE | 2024-07-12 19:38 | DVH ---
CLINICAL HISTORY: aloc TECHNIQUE: Helical imaging carried out from skull base to vertex without intravenous contrast. This e xam was performed according to our departmental dose optimization program. Up-to-date CT equipment an d radiation dose reduction techniques are utilized as appropriate. CTDIVol: [CTDIvol] mGy DLP: 1151.77 mGy-cm WID: COMPARISON: CT head from 01/16/2020 FINDINGS: Mild cerebral volume loss with concordant prominence of the subarachnoid spaces and ventricles. Mild patchy low-attenuation throughout the cerebral white matter consistent with nonspecific white matter disease. There is no midline shift or mass effect. The pickett white matter interfaces are maintained. The basal cisterns are patent. There is no evidence of acute intracranial hemorrhage or extra-axial fluid dacia ection. The mastoid air cells are well-aerated. There is complete opacification of the left maxillary sinus. There is complete opacification of the atretic left sphenoid sinus. There sclerosis of the l eft maxillary sinus garvey. Prior ocular lens replacements. IMPRESSION: 1. No acute intracranial abnormality. 2. Mild cerebral volume loss and mild chronic microvascular ischemic change. 3. Chronic left maxillary sinusitis.
[2024-07-12 21:50] LABS: Urine Bacteria FEW /hpf (None Seen); Urine Blood Negative /uL (Negative); Urine Clarity Turbid (Clear); Urine Color Colorless (Yellow); Urine Hyaline Cast FEW /lpf (0 - 2); Urine Mucus FEW (None Seen); Urine Protein, UAD 2+ (Negative); Urine Specific Gravity 1.012 (1.001-1.035); Urine Urobilinogen Normal (Negative); Urine WBC 185 /hpf (0 - 5); Urine pH 5.5 (5.0-9.0)
[2024-07-12] MEDS ORDERED: ONDANSETRON HCL 4 MG/2 ML VIAL IV PRN (22:15)
[2024-07-12] MEDS ORDERED: NITROGLYCERIN 0.4 MG SL TAB SL PRN (22:15)
[2024-07-12] MEDS ORDERED: MORPHINE SULFATE INJ 2 MG/ml SYRG IV PRN (22:15)
[2024-07-12] MEDS ORDERED: ACETAMINOPHEN 325 MG TAB PO PRN (22:15)
--- NOTE | 2024-07-12 22:58 | DVHHPRES ---
History of Present Illness Resident Creating Document: BILLY COLINDRES RESIDENT History of Present Illness Patient is 89 years old female with past medical history of hypertension, diabetes mellitus type 2, hyperlipidemia, thyroid disease, status post thyroidectomy, history of pulmonary fibrosis came with granddaughter due to alt ered mental status. History was taken from patient and d granddaughter. As per patient patient when workup early in the mornining today her right hand was having tremor, difficulty in his speech which lasted for few hours 5-6 hours. Granddaughter also reported that patient was confused for few hours, did not make sense what she was he about. Blood pressure in the morning at home was 190/111. In the afternoon after 5:00 p.m. patient is condition improved. Patient and granddaughter reported patient had the same kind of incident 3 weeks before. Reported feeling weakness of the right side a little bit. On further discussion patient and granddaughter reported patient is having bilateral leg swelling for a while. Patient also reported having urinary tract infection as it was diagnosed in the primary care physician's office on Wednesday but she was not any antibiotic. Patient's lab workup revealed elevated serum creatinine 1.42, GFR 36, HbA1c 7, 141, TSH 0.74, B12 1388, urinalysis revealed leukocyte esterase 3+, WBC 185, bacteria few. CT scan of the head revealed- No acute intracranial abnormality. Mild cerebral volume loss and mild chronic microvascular ischemic change. Chronic left maxillary sinusitis. Carotid- Doppler revealed-Mild calcified plaque at the left carotid bifurcation. Spectral analysis demonstrates no hemodynamically significant CCA or ICA stenosis. Past Medical History hypertension, diabetes mellitus type 2, hyperlipidemia, thyroid disease, status post thyroidectomy, history of pulmonary fibrosis Past Surgical History right hip and knee Sx, cataract Sx Past Social History Lives alone, nonsmoker, nonalcoholic no drug abuser Review of Systems Review of Systems Allergy-codeine, penicillin, sulfa antibiotic, as per patient penicillin causes her hives and also short of breath, levofloxacin-had she will and hallucinating after she got it Patient was seen today at the bedside. Patient reports feeling better Cardiovascular- deny acute chest pain or shortness of breath or cough or palpitation Respiratory- denies cough or short of breath or wheezing Gastrointestinal- denies any rectal bleeding, nausea or vomiting Musculoskeletal-denies acute joint swelling or tenderness or redness Neurological- denies acute dysarthria, dysphagia, change in vision Psychiatry- denies depression or SI or HI Skin- denies acute rash or purpura Allergies: Coded Allergies: Codeine (Verified Allergy, Unknown, 01/16/20) Penicillins (Verified Allergy, Unknown, 01/16/20) Sulfa Antibiotics (Verified Allergy, Unknown, 01/16/20) Levofloxacin (Verified Adverse Reaction, Mild, HALLUCINATIONS, DIZZINESS, SHAKINESS , 07/13/24) Medications Current Medications Medications Dose Ordered Sig/Sandeep Route Start Time Stop Time Status Last Admin Dose Admin Sodium Chloride 10 ml Q8HR IV 07/13/24 06:00 Acetaminophen 325 mg Q4HP PRN PO 07/12/24 22:15 Ondansetron HCl 4 mg Q4HP PRN IV 07/12/24 22:15 Docusate Sodium 100 mg BIDPRN PRN PO 07/12/24 22:15 Enoxaparin Sodium 30 mg DAILY SC 07/13/24 10:00 Nitroglycerin 0.4 mg Q5MINP PRN SL 07/12/24 22:15 Morphine Sulfate 2 mg Q30M PRN IV 07/12/24 22:15 Nifedipine 30 mg DAILY PO 07/13/24 10:00 Ceftriaxone Sodium 50 ml @ 100 mls/hr DAILY@09 IV 07/13/24 09:00 UNV Exam Vital Signs Vital Signs Date Time Temp Pulse Resp B/P (MAP) Pulse Ox O2 Delivery O2 Flow Rate FiO2 07/12/24 19:10 96 07/12/24 18:25 98.3 18 185/111 (135) 96 169/77 (107) Exam General examination- HEENT- PEERLA, no acute nasal discharge Cardiovascular- S1-S2 audible, rate and rhythm regular, no murmur Respiratory- CTAB, no wheeze or rhonchi Gastrointestinal-nontender, bowel sound+. Nondistended Musculoskeletal-no acute joint swelling or tenderness or redness# Lower extremity- ++ bilateral leg edema++ Neurological- right-sided mild weakness Psychiatry- denies depression or SI or HI Skin- fragile skin Labs/Xrays Labs Test 07/12/24 18:48 07/12/24 18:38 07/12/24 18:23 Range/Units POC Glucose 116 H 70-106 mg/dl Urine Color Colorless Yellow Urine Clarity Turbid H Clear Urine pH 5.5 5.0-9.0 Urine Specific [place] 1.012 1.001-1.035 Urine Protein 2+ H Negative Urine Ketones Trace Negative Urine Blood Negative Negative /uL Urine Nitrite Negative Negative Urine Bilirubin Negative Negative Urine Urobilinogen Normal Negative mg/dL Urine Leukocyte Esterase 3+ Negative /uL Urine RBC 3 0 - 4 /hpf Urine WBC 185 0 - 5 /hpf Urine Squamous Epithelial Cells Few <5 /hpf Urine Bacteria Few H None Seen /hpf Urine Hyaline Casts Few 0 - 2 /lpf Urine Mucus Few None Seen Urine Glucose Normal Normal mg/dL White Blood Count 9.7 4.4-10.8 10^3/uL Red Blood Count 4.10 4.0-5.20 10^6/uL Hemoglobin 12.7 12.2-16.2 g/dL Hematocrit 38.0 36.0-46.0 % Mean Corpuscular Volume 92.7 80.0-100.0 fL Mean Corpuscular Hemoglobin 31.0 28.0-32.0 pg Mean Corpuscular Hemoglobin Concent 33.4 32.0-36.0 g/dL Red Cell Distribution Width 14.2 11.8-14.3 % Platelet Count 241 140-450 10^3/uL Mean Platelet Volume 9.0 6.9-10.8 fL Neutrophils (%) (Auto) 57.8 37.0-80.0 % Lymphocytes (%) (Auto) 31.0 10.0-50.0 % Monocytes (%) (Auto) 6.5 0.0-12.0 % Eosinophils (%) (Auto) 4.0 0.0-7.0 % Basophils (%) (Auto) 0.7 0.0-2.0 % Neutrophils # (Auto) 5.6 1.6-8.6 10 ^3/uL Lymphocytes # (Auto) 3.0 0.4-5.4 10 ^3/uL Monocytes # (Auto) 0.6 0-1.3 10 ^3/uL Eosinophils # (Auto) 0.4 0-0.8 10 ^3/uL Basophils # (Auto) 0.1 0-0.2 10 ^3/uL Nucleated Red Blood Cells 0.1 % Sodium Level 140 136-145 mmol/L Potassium Level 4.1 3.5-5.1 mmol/L Chloride Level 107 98-107 mmol/L Carbon Dioxide Level 19 L 20-31 mmol/L Anion Gap 14 5-15 Blood Urea Nitrogen 30 H 9-23 mg/dL Creatinine 1.42 H 0.550-1.02 mg/dL Glomerular Filtration Rate Calc 36 >90 mL/min BUN/Creatinine Ratio 21.1 H 10.0-20.0 Serum Glucose 107 H 74-106 mg/dL Calcium Level 10.1 8.7-10.4 mg/dL Assessment/Plan Assessment/Plan # suspected TIA/CVD -right-sided mild weakness especially in the right upper arm -CT head-Mild cerebral volume loss and mild chronic microvascular ischemic change. -carotid Doppler-No hemodynamically significant CCA or ICA stenosis. -EKG sinus rhythm, no acute ST or T-wave changes -pending echo 2D -continue aspirin 81 mg p.o. daily -continue Plavix 75 mg p.o. daily -continue atorvastatin 40 mg p.o. q.h.s. # metabolic encephalopathy likely due to UTI -history of confusion early in the day during the morning and in the afternoon -urinalysis revealed leukocyte esterase 3+, WBC 185, bacteria few. --was started was levofloxacin but patient had a reaction like shaking, hallucinating so we changed the antibiotic to Macrobid 100 mg p.o. b.i.d. -pending urine CS # hypertensive urgency -BP home in the morning was 190/111 --CT head-Mild cerebral volume loss and mild chronic microvascular ischemic change. -carotid Doppler-No hemodynamically significant CCA or ICA stenosis. -EKG sinus rhythm, no acute ST or T-wave changes -continue hydralazine 10 mg IV q.6h p.r.n. -continue nifedipine ER XL 30 mg p.o. daily # UTI --urinalysis revealed leukocyte esterase 3+, WBC 185, bacteria few. -was started was levofloxacin but patient had a reaction like shaking, hallucinating so we changed the antibiotic to Macrobid 100 mg p.o. b.i.d. -pending pending CS # bilateral leg swelling -BNP 93.7, trop I 8 -bilateral lower extremity venous Doppler negative for DVT -ordered Doppler study of the bilateral lower extremity to rule out DVT -pending echo 2D # LETA likely due to VMN -avoid dehydration and nephrotoxic drugs # hypomagnesemia -magnesium 1.1 -ordered magnesium property underwriter 1g IV stat -repeat serum magnesium level #Diabetes mellitus type 2 -HGB A1c 6.7 -continue insulin sliding scale # hyperlipidemia -continue atorvastatin 40 mg q.h.s. # thyroid disease, status post thyroidectomy -TSH 3.74 # history of pulmonary fibrosis -follow up outpatient Goals of care/advance care planning; FULL CODE; discussed with the patient >15 minutes PUD prophylaxis: Pantoprazole DVT prophylaxis: Lovenox # PCP-Conrado Velez Plan discussed with Dr. Lopez, nursing staff, patient Total time spent on patient evaluation, chart review, assessment and plan, discussion discussion >30 minutes Plan discussed with: Patient Plan discussed with: Patient, Other (GRANDDAUGHTER, RN) My Orders Orders - BILLY COLINDRES RESIDENT Procedure Category Date Status Time Admit ADMIT 07/12/24 Transmitted 22:14 Renal DIET 07/13/24 Transmitted Standard(2gna,3gk,Lopho) Breakfast Sodium Chloride Lock PHA 07/13/24 In Process (Saline Lock Ns) 06:00 Acetaminophen Tablet PHA 07/12/24 In Process (Tylenol Tablet) 22:15 Ondansetron Hcl PHA 07/12/24 In Process (Zofran) 22:15 Docusate Sodium PHA 07/12/24 In Process Capsule (Colace 22:15 Fall Risk Precautions SWETHA 07/12/[address] 22:14 Nitroglycerin PHA 07/12/24 In Process Sublingual (Ntrostat 22:15 Morphine Sulfate PHA 07/12/24 In Process Injection 22:15 Oxygen By Nasal RT 07/12/24 Transmitted Cannula 22:14 Stat Ekg For Chest SWETHA 07/12/24 In Process Pain 22:14 Notify Of Changes SWETHA 07/12/24 In Process From Base 22:14 Sorority Mother For SWETHA 07/12/24 In Process 24 Hours 22:14 Emergency Dysrhythmia SWETHA 07/12/24 In Process Protocol 22:14 Rhythm Strips Once SWETHA 07/12/24 In Process Every Shift 22:14 Urine Bacterial JIMENA 07/12/24 Logged Culture 22:17 Enoxaparin Sodium PHA 07/13/24 In Process (Lovenox) 10:00 Ceftriaxone 1gm/50ml PHA 07/13/24 Logged D5w (Rocephin) 09:00 Ceftriaxone 1gm/50ml PHA 07/12/24 Logged D5w (Rocephin) 22:45 Troponin-I Hs LAB 07/12/24 In Process 22:43 Troponin-I Hs LAB 07/12/24 Logged 23:43 Troponin-I Hs LAB 07/13/24 Verified 01:43 B-Type Natriuretic LAB 07/12/24 Logged Peptide 22:43 Chest Two Views XY 07/12/24 Logged Routine 22:47 Hemoglobin A1c LAB 07/12/24 Logged 22:49 Aspirin Tablet PHA 07/12/24 Transmitted 23:00 Aspirin Tablet PHA 07/13/24 Transmitted 10:00 Clopidogrel Bisulfate PHA 07/12/24 Transmitted (Plavix) 23:00 Atorvastatin (Lipitor) PHA 07/13/24 Verified 22:00 Atorvastatin (Lipitor) PHA 07/12/24 Verified 23:00 Date of Service: Jul 12, 2024 Billing Provider: ERIKA LOPEZ MD Common Visit Codes: 73906-OVZLVRS INP/OBS CARE (HIGH) Secondary Visit Codes: [id number] CARE PLAN 30 MINUTES BILLY COLINDRES RESIDENT Jul 12, 2024 22:58 ERIKA LOPEZ MD Jul 13, 2024 19:08
[2024-07-12 23:33] LABS: Alanine Aminotransferase 26 U/L (7-40); Albumin 4.5 g/dL (3.2-4.8); Alkaline Phosphatase 75 U/L (46-116); Anion Gap 14 (5-15); Aspartate Aminotransferase 20 U/L (13-40); BUN/Creatinine Ratio 24.3 (10.0-20.0); Bilirubin, Total 0.4 mg/dL (0.2-1.0); Blood Urea Nitrogen 28 mg/dL (9-23); Carbon Dioxide 19 mmol/L (20-31); Chloride 104 mmol/L (98-107); Glucose 149 mg/dL (74-106); Magnesium 1.1 mg/dL (1.6-2.6); Potassium 4.1 mmol/L (3.5-5.1); Sodium 137 mmol/L (136-145); Total Protein 7.4 g/dL (5.7-8.2)
[2024-07-12 23:40] VITALS: PULSE 73; RESP 16; O2SAT 96
--- NOTE | 2024-07-12 23:43 | DVH ---
CHEST RADIOGRAPH Indication: tachypnea Technique: Single frontal view of the chest was obtained COMPARISON: CHEST PORTABLE on DOS: 01/16/20 FINDINGS: Lines and Tubes: None Lungs: Clear Pleura: No effusion. No pneumothorax. Cardiomediastinal contours: Unremarkable Bones: Unremarkable IMPRESSION: 1. No acute disease.
[2024-07-12] MEDS: ATORVASTATIN 20 MG TAB PO ONE (23:56)
[2024-07-12] MEDS: ASPirin 81 mg TAB PO ONE (23:57)
[2024-07-12] MEDS: CLOPIDOGREL BISULFATE 75 MG TAB PO ONE (23:57)
[2024-07-12] MEDS: NIFEdipine ER 30 MG TAB PO ONE (23:57)
[2024-07-12] MEDS: hydrALAZINE HCL 20 MG/ML VL IV ONE (23:58)
[2024-07-13] MEDS: cefTRIAXone 1GM/50ML D5W 50 ML IV ONE (00:07)
[2024-07-13] MEDS: hydrALAZINE HCL 20 MG/ML VL IV ONE (00:07)
[2024-07-13] MEDS: levoFLOXacin 750MG 150 ML IV ONE (00:37)
--- NOTE | 2024-07-13 00:49 | DVH ---
US CAROTID DOPPLER CLINICAL INDICATION: TIA TECHNIQUE: Multiple grayscale, color Doppler and spectral Doppler ultrasound images were obtained thr oughout both carotid systems. COMPARISON: None FINDINGS: RIGHT: CCA PSV: 78 cm/s ECA PSV: 104 cm/s ICA PSV: 126 cm/s ICA EDV: 26 cm/s ICA/CCA Ratio: 1.6 Vertebral artery: Patent, antegrade flow. Grayscale images demonstrate no significant plaque or visible stenosis. Spectral analysis demonstrate s no hemodynamically significant CCA or ICA stenosis. LEFT: CCA PSV: 66 cm/s ECA PSV: 90 cm/s ICA PSV: 115 cm/s ICA EDV: 24 cm/s ICA/CCA Ratio: 1.7 Vertebral artery: Patent, antegrade flow. Mild calcified plaque at the left carotid bifurcation. Spectral analysis demonstrates no hemodynamica lly significant CCA or ICA stenosis. IMPRESSION: No hemodynamically significant CCA or ICA stenosis.
[2024-07-13] MEDS: MAGNESIUM SULFATE 1GM/100ML 100 ML IV ONE (01:55)
[2024-07-13] MEDS: PANTOPRAZOLE 40 MG TAB PO ONE (02:27)
--- NOTE | 2024-07-13 03:55 | DVH ---
Bilateral lower extremity venous duplex Clinical History: Bilateral leg swelling Technique: Duplex Doppler evaluation of the deep venous systems of both lower extremities from the common femora l veins to the popliteal veins including color Doppler and spectral/pulsed waveform analysis was perf ormed. Findings: RIGHT SIDE: The common femoral vein demonstrates appropriate compressibility and waveform variability. There is compressibility/patency of the great saphenous vein at the proximal thigh. The femoral vein demonstrates appropriate compressibility and waveform variability. The deep femoral vein demonstrates appropriate compressibility and waveform variability. The popliteal vein demonstrates appropriate compressibility and waveform variability. There is normal compressibility at the tibioperoneal trunk. LEFT SIDE: The common femoral vein demonstrates appropriate compressibility and waveform variability. There is compressibility/patency of the great saphenous vein at the proximal thigh. The femoral vein demonstrates appropriate compressibility and waveform variability. The deep femoral vein demonstrates appropriate compressibility and waveform variability. The popliteal vein demonstrates appropriate compressibility and waveform variability. There is normal compressibility at the tibioperoneal trunk. Impression: No right or left femoropopliteal venous thrombosis.
[2024-07-13] MEDS: PANTOPRAZOLE 40 MG TAB PO SCH (06:00)
[2024-07-13 06:06] LABS: Basophils # (auto) 0.1 10 ^3/uL (0-0.2); Basophils % (auto) 0.6 % (0.0-2.0); Eosinophils # (auto) 0.2 10 ^3/uL (0-0.8); Eosinophils % (auto) 1.8 % (0.0-7.0); Hematocrit 34.8 % (36.0-46.0); Hemoglobin 11.7 g/dL (12.2-16.2); Lymphocytes # (auto) 2.1 10 ^3/uL (0.4-5.4); Lymphocytes % (auto) 24.3 % (10.0-50.0); Mean Corpuscular Hemoglobin 31.2 pg (28.0-32.0); Mean Corpuscular Hgb Conc. 33.7 g/dL (32.0-36.0); Mean Corpuscular Volume 92.5 fL (80.0-100.0); Monocytes # (auto) 0.5 10 ^3/uL (0-1.3); Monocytes % (auto) 5.8 % (0.0-12.0); Neutrophils # (auto) 5.8 10 ^3/uL (1.6-8.6); Neutrophils % (auto) 67.5 % (37.0-80.0); Platelet Count (auto) 232 10^3/uL (140-450); Red Blood Cells 3.76 10^6/uL (4.0-5.20); White Blood Cell 8.6 10^3/uL (4.4-10.8)
[2024-07-13] MEDS: SODIUM CHLOR 0.9% PF (SALINE LOCK) 10ML VIAL/SYR IV SCH (06:06)
[2024-07-13] MEDS: NITROFURANTOIN 100 mg CAP PO ONE (06:25)
[2024-07-13 06:30] LABS: Alanine Aminotransferase 22 U/L (7-40); Alkaline Phosphatase 66 U/L (46-116); Anion Gap 13 (5-15); Aspartate Aminotransferase 15 U/L (13-40); BUN/Creatinine Ratio 26.5 (10.0-20.0); Bilirubin, Total 0.4 mg/dL (0.2-1.0); Blood Urea Nitrogen 26 mg/dL (9-23); Calcium 9.8 mg/dL (8.7-10.4); Carbon Dioxide 19 mmol/L (20-31); Chloride 105 mmol/L (98-107); Glucose 138 mg/dL (74-106); Magnesium 1.6 mg/dL (1.6-2.6); Phosphorus 2.7 mg/dL (2.4-5.1); Potassium 3.8 mmol/L (3.5-5.1); Sodium 137 mmol/L (136-145); Total Protein 6.6 g/dL (5.7-8.2)
--- NOTE | 2024-07-13 06:37 | ECG ---
[facility] Test Date: 2024-07-12 Test Time: 18:42:28 Pat Name: MARY ALICE FIELDS Department: ER Room: [facility] Gender: F Computer Repair Technician: KELLEY : 1935 Requested By: VIRAJ HOLBROOK Order Number: [id number] Reading MD: Hitesh Romero Measurements Intervals [place] Rate: 96 P: 40 [place]: 228 QRS: 50 QRSD: 122 T: -13 QT: 362 QTc: 458 Interpretive Statements Sinus rhythm Prolonged [place] interval Right bundle branch block Baseline wander in lead(s) V1 Electronically Signed On 07-14-2024 17:38:24 PST by Hitesh Romero Please click the below link to view image of tracing.
[2024-07-13 06:56] LABS: Triglycerides 122 mg/dL (< 150)
[2024-07-13 06:57] LABS: LDL Cholesterol 50 mg/dL (< 100)
[2024-07-13 06:58] LABS: Cholesterol 116 mg/dL (< 200); HDL Cholesterol 44 mg/dL (40-59)
[2024-07-13 08:19] VITALS: PULSE 75; RESP 16; O2SAT 96
--- NOTE | 2024-07-13 08:33 | DVHINCON2 ---
Date of service: Jul 13, [address] Motley Reason for Consultation Medical Management History of Present Illness This is an 89-year-old female with a past medical history who presented with a reported generalized weakness and dysuria. She was recently evaluated at her primary care physician's office and diagnosed with UTI but was not prescribed any antibiotics. She was supposed to follow up further further management but given her progressive weakness, her family brought her to the emergency room for further evaluation and management. She has no focal deficits. No major events reported overnight. Patient denies complaints of fevers, chills, change in appetite, chest pain, palpitations, cough, shortness of breath, dyspnea on exertion, abdominal pain, nausea, vomiting, diarrhea, constipation, dysuria, lightheadedness, weakness, paresthesia or other complaints. Last bowel movement was yesterday, brown, soft, no melena, no hematochezia. Past Medical History Diabetes mellitus type 2 Hypertension Hyperlipidemia Vitamin-D deficiency Family History: Cardiovascular disease G8 MOTHER Diabetes mellitus G8 MOTHER Social History Patient denies current smoking, alcohol use or recreational/illicit drug use. Allergies: Coded Allergies: Codeine (Verified Allergy, Unknown, 01/16/20) Penicillins (Verified Allergy, Unknown, 01/16/20) Sulfa Antibiotics (Verified Allergy, Unknown, 01/16/20) Levofloxacin (Verified Adverse Reaction, Mild, HALLUCINATIONS, DIZZINESS, SHAKINESS , 07/13/24) Home Meds Active Scripts Losartan Potassium (Losartan Potassium) 100 Mg Tab, 1 TAB PO DAILY, #90 TAB 1 Refill Prov:01/23/20 Insulin Glargine (Basaglar Kwikpen) 100 Unit/Ml Inj, 50 UNIT SC QPM for 90 Days, #45 INJ Prov:01/23/20 Sitagliptin Phosphate (Januvia) 100 Mg Tab, 100 MG PO DAILY for 90 Days, #90 TAB Prov:01/23/20 Amlodipine Besylate (Amlodipine Besylate) 10 Mg Tab, 1 TAB PO DAILY, #90 TAB 1 Refill Prov:01/23/20 Metoprolol Succinate (Metoprolol Succinate Er) 100 Mg Tab, 100 MG PO DAILY for 90 Days, #90 TAB Prov:01/23/20 Hydrocodone-Acetaminophen ([place] 5/325MG) 1 Tab Tb, 1 TAB PO Q6HP PRN, #20 TAB . Prov:KING ELLIS MD 01/20/20 Levofloxacin Hemihydrate (LEVOFLOXACIN) 500 Mg Tab, 500 MG PO DAILY, #11 TAB Prov:KING ELLIS MD 01/20/20 Enoxaparin Sodium (Lovenox) 40 Mg/0.4 Ml Ij, 40 MG SC DAILY, #12 INJ Prov:KING ELLIS MD 01/20/20 Reported Medications Ascorbic Acid (VITAMIN C TABLET) 500 Mg Tb, 1 TAB PO DAILY, #30 TAB 3 Refills 01/17/20 [place]-3 Fatty Acids (FISH OIL) 1,000 Mg Cap, 1000 MG PO, CAP 01/17/20 Cholecalciferol (D3) 50 Mcg Cap, 50 MCG PO, CAP 01/17/20 Lovastatin (Lovastatin) 40 Mg Tab, 1 TAB PO DAILY, #30 TAB 5 Refills 01/17/20 Metformin Hydrochloride (Glucophage) 1,000 Mg Tab, 1 TAB PO BID, #60 TAB 5 Refills 01/17/20 Furosemide (Furosemide) 20 Mg Tab, 1 TAB PO DAILY, #90 TAB 1 Refill 01/17/20 Glimepiride (Glimepiride) 4 Mg Tab, 4 MG PO DAILY for 30 Days, MG 01/17/20 Current Medications Current Medications Medications (Trade) Dose Ordered Sig/Sandeep Route PRN Reason Start Time Stop Time Status Last Admin Sodium Chloride (Saline Lock Ns) 10 ml Q8HR IV 07/13/24 06:00 07/13/24 06:06 Acetaminophen (Tylenol Tablet) 325 mg Q4HP PRN PO MILD PAIN (1-3 PAIN SCALE) 07/12/24 22:15 Ondansetron HCl (Zofran) 4 mg Q4HP PRN IV NAUSEA / VOMITING 07/12/24 22:15 Docusate Sodium (Colace Capsule) 100 mg BIDPRN PRN PO FOR CONSTIPATION 07/12/24 22:15 Enoxaparin Sodium (Lovenox) 30 mg DAILY SC 07/13/24 10:00 07/13/24 01:29 DC Nitroglycerin (Ntrostat Sublingual) 0.4 mg Q5MINP PRN SL FOR CHEST PAIN 07/12/24 22:15 Morphine Sulfate 2 mg Q30M PRN IV FOR CHEST PAIN 07/12/24 22:15 Nifedipine (Procardia Xl (Time-Release)) 30 mg DAILY PO 07/13/24 10:00 07/13/24 05:10 DC Ceftriaxone Sodium 50 ml @ 100 mls/hr DAILY@2100 IV 07/13/24 21:00 07/13/24 00:04 DC Aspirin 81 mg DAILY PO 07/13/24 10:00 Atorvastatin Calcium (Lipitor) 40 mg HS PO 07/13/24 22:00 Levofloxacin/ Dextrose 150 ml @ 100 mls/hr Q48H IV 07/14/24 22:00 07/13/24 01:24 DC Clopidogrel Bisulfate (Plavix) 75 mg DAILY PO 07/13/24 10:00 Pantoprazole Sodium (Protonix Tablet) 40 mg DAILY@0600 PO 07/13/24 06:00 Levofloxacin/ Dextrose 150 ml @ 100 mls/hr Q48H IV 07/14/24 22:00 07/13/24 01:35 DC Levofloxacin/ Dextrose 150 ml @ 100 mls/hr EOD IV 07/15/24 10:00 07/13/24 06:07 DC Nifedipine (Procardia Xl (Time-Release)) 60 mg DAILY PO 07/13/24 10:00 Nitrofurantoin Macrocrystals (Macrobid) 100 mg BID PO 07/13/24 22:00 Vital Signs Vital Signs Date Time Temp Pulse Resp B/P (MAP) Pulse Ox O2 Delivery O2 Flow Rate FiO2 07/13/24 08:19 75 16 96 Room Air* 0 21 07/13/24 07:00 143/64 (90) 07/12/24 23:36 99.2 99.2 Physical Exam Physical Exam: General: This is an 89-year-old female appearing stated age in no acute distress. HEENT: Pupils equal and reactive to light and accommodation. Extraocular muscles intact. Mucous membranes moist. Conjunctivae [place]. Anicteric Sclera. Lungs: Bilateral air entry; no wheezes, rhonchi, rales. Heart: Regular Rate and Rhythm. Normal S1/S2. Abdomen: Bowel Sounds Normoactive, soft, non-tender, non-distended, no cva tenderness. Extremities: No clubbing, cyanosis, edema. No calf tenderness. Pedal pulses 2+. Neurologic: Patient alert, awake and oriented x 3. Cranial nerves II through XII intact. No focal deficits on gross sensorimotor exam. Labs/Diagnostic Data Labs Test 07/13/24 05:29 07/12/24 23:09 07/12/24 23:01 07/12/24 18:48 Range/Units White Blood Count 8.6 4.4-10.8 10^3/uL Red Blood Count 3.76 L 4.0-5.20 10^6/uL Hemoglobin 11.7 L 12.2-16.2 g/dL Hematocrit 34.8 L 36.0-46.0 % Mean Corpuscular Volume 92.5 80.0-100.0 fL Mean Corpuscular Hemoglobin 31.2 28.0-32.0 pg Mean Corpuscular Hemoglobin Concent 33.7 32.0-36.0 g/dL Red Cell Distribution Width 14.0 11.8-14.3 % Platelet Count 232 140-450 10^3/uL Mean Platelet Volume 8.6 6.9-10.8 fL Neutrophils (%) (Auto) 67.5 37.0-80.0 % Lymphocytes (%) (Auto) 24.3 10.0-50.0 % Monocytes (%) (Auto) 5.8 0.0-12.0 % Eosinophils (%) (Auto) 1.8 0.0-7.0 % Basophils (%) (Auto) 0.6 0.0-2.0 % Neutrophils # (Auto) 5.8 1.6-8.6 10 ^3/uL Lymphocytes # (Auto) 2.1 0.4-5.4 10 ^3/uL Monocytes # (Auto) 0.5 0-1.3 10 ^3/uL Eosinophils # (Auto) 0.2 0-0.8 10 ^3/uL Basophils # (Auto) 0.1 0-0.2 10 ^3/uL Nucleated Red Blood Cells 0.0 % D-Dimer, Quantitative 0.94 H 0.0-0.49 mg/L FEU Sodium Level 137 136-145 mmol/L Potassium Level 3.8 3.5-5.1 mmol/L Chloride Level 105 98-107 mmol/L Carbon Dioxide Level 19 L 20-31 mmol/L Anion Gap 13 5-15 Blood Urea Nitrogen 26 H 9-23 mg/dL Creatinine 0.98 0.550-1.02 mg/dL Glomerular Filtration Rate Calc 56 >90 mL/min BUN/Creatinine Ratio 26.5 H 10.0-20.0 Serum Glucose 138 H 74-106 mg/dL Calcium Level 9.8 8.7-10.4 mg/dL Phosphorus Level 2.7 2.4-5.1 mg/dL Magnesium Level 1.6 1.6-2.6 mg/dL Total Bilirubin 0.4 0.2-1.0 mg/dL Aspartate Amino Transferase (AST) 15 13-40 U/L Alanine Aminotransferase (ALT) 22 7-40 U/L Alkaline Phosphatase 66 46-116 U/L Total Protein 6.6 5.7-8.2 g/dL Albumin 4.0 3.2-4.8 g/dL Triglycerides Level 122 < 150 mg/dL Cholesterol Level 116 < 200 mg/dL LDL Cholesterol 50 < 100 mg/dL HDL Cholesterol 44 40-59 mg/dL Vitamin D 25-Hydroxy 44.0 30.0-100 ng/mL B-Type Natriuretic Peptide 93.70 0-100 pg/mL Hemoglobin A1c 6.7 H <5.7 % A1C Troponin I High Sensitivity 8 </=34 ng/L POC Glucose 116 H 70-106 mg/dl Test 07/12/24 18:38 07/12/24 18:23 Range/Units Urine Color Colorless Yellow Urine Clarity Turbid H Clear Urine pH 5.5 5.0-9.0 Urine Specific [place] 1.012 1.001-1.035 Urine Protein 2+ H Negative Urine Ketones Trace Negative Urine Blood Negative Negative /uL Urine Nitrite Negative Negative Urine Bilirubin Negative Negative Urine Urobilinogen Normal Negative mg/dL Urine Leukocyte Esterase 3+ Negative /uL Urine RBC 3 0 - 4 /hpf Urine WBC 185 0 - 5 /hpf Urine Squamous Epithelial Cells Few <5 /hpf Urine Bacteria Few H None Seen /hpf Urine Hyaline Casts Few 0 - 2 /lpf Urine Mucus Few None Seen Urine Glucose Normal Normal mg/dL Vitamin B12 Level 1388 H 211-911 pg/mL Thyroid Stimulating Hormone (TSH) 3.74 0.55-4.78 uIU/mL [address] [address] Ph: [phone] DIAGNOSTIC IMAGING Diagnostic Imaging Report : [id number] Signed PATIENT: RICARDO FIELDST: [id number] UNIT: [id number] : 1935 LOC: ER ROOM / BED: / AGE / SEX: 89 / F ADM STATUS: REG ER SERVICE 29 ORDERING PHYSICIAN: VIRAJ MOTLEY MD PROCEDURE(s): HWOCT - HEAD WITHOUT CONTRAST REASON: aloc ORDER NUMBER(s): [id number], ACCESSION NUMBER(s): [id number] CLINICAL HISTORY: aloc TECHNIQUE: Helical imaging carried out from skull base to vertex without intravenous contrast. This exam was performed according to our departmental dose optimization program. Up-to-date CT equipment and radiation dose reduction techniques are utilized as appropriate. CTDIVol: [CTDIvol] mGy DLP: 1151.77 mGy-cm WID: COMPARISON: CT head from 01/16/2020 FINDINGS: Mild cerebral volume loss with concordant prominence of the subarachnoid spaces and ventricles. Mild patchy low-attenuation throughout the cerebral white matter consistent with nonspecific white matter disease. There is no midline shift or mass effect. The pickett white matter interfaces are maintained. The basal cisterns are patent. There is no evidence of acute intracranial hemorrhage or extra-axial fluid collection. The mastoid air cells are well-aerated. There is complete opacification of the left maxillary sinus. There is complete opacification of the atretic left sphenoid sinus. There sclerosis of the left maxillary sinus [place]. Prior ocular lens replacements. IMPRESSION: 1. No acute intracranial abnormality. 2. Mild cerebral volume loss and mild chronic microvascular ischemic change. 3. Chronic left maxillary sinusitis. ATED BY: FRANCA BHAT MD DICTATED DATE/TIME: 07/12/241935 SIGNED BY: FRANCA BHAT MD SIGNED DATE/TIME: 07/12/241935 CC: [place] [id number] Ph: [phone] DIAGNOSTIC IMAGING Diagnostic Imaging Report : [id number] Signed PATIENT: MARY ALICE FIELDSACCT: [id number] UNIT: [id number] : 1935 LOC: OVERFLOW ROOM / BED: [facility] / A AGE / SEX: 89 / F ADM STATUS: ADM IN SERVICE 46 ORDERING PHYSICIAN: BILLY COLINDRES RESIDENT PROCEDURE(s): CXR1 - CHEST XRAY 1 VIEW REASON: tachypnea ORDER NUMBER(s): [id number], ACCESSION NUMBER(s): [id number] CHEST RADIOGRAPH Indication: tachypnea Technique: Single frontal view of the chest was obtained COMPARISON: CHEST PORTABLE on DOS: 01/16/20 FINDINGS: Lines and Tubes: None Lungs: Clear Pleura: No effusion. No pneumothorax. Cardiomediastinal contours: Unremarkable Bones: Unremarkable IMPRESSION: 1. No acute disease. ATED BY: SAPPHIRE PARSONS MD DICTATED DATE/TIME: 07/12/242340 SIGNED BY: SAPPHIRE PARSONS MD SIGNED DATE/TIME: 07/12/242340 CC: Plan/Recommendation This is an 89-year-old female with a past medical history who presented with complaint of generalized weakness confirmed to have a urinary tract infection. Internal Medicine consulted for further evaluation and management. Patient does not appear toxic. She does not meet SIRS criteria. She has no leukocytosis. She is afebrile. Generalized weakness likely primarily secondary to underlying urinary tract infection. At this time, [facility] while being treated for urinary tract infection. I recommend Levaquin 500 mg p.o. daily x7 days. Follow up urine culture with physician at jail facility. Regarding accelerated hypertension, restart home antihypertensive regimen. Thank you for allowing me to participate in the care of your patient. Please do not hesitate to contact me with any further questions or concerns. All above discussed with the patient and, per patient consent, daughter at bedside. All verbalized agreement and understanding of current status and plan. All questions answered. Patient declined reaching out to any family for update. This medical document was created using an electronic medical record system with [employer] system. Although this document has been carefully reviewed, there may still be some phonetic and typographical errors. These areas are purely typographical due to imperfections of the software programs, and do not reflect any compromise in the patient's medical care Plan discussed with: Other KING ELLIS MD Jul 13, 2024 08:33
[2024-07-13 08:56] VITALS: BP 126/69; PULSE 71; RESP 17; TEMP 97.6; O2SAT 97
[2024-07-13 09:14] LABS: Urine Bacteria MOD /hpf (None Seen); Urine Blood TRACE /uL (Negative); Urine Clarity Turbid (Clear); Urine Protein, UAD 1+ (Negative); Urine Specific Gravity 1.007 (1.001-1.035); Urine Urobilinogen Normal (Negative); Urine WBC 484 /hpf (0 - 5); Urine WBC Clumps PRESENT /hpf (None Seen); Urine pH 5.5 (5.0-9.0)
[2024-07-13 09:15] LABS: Urine Color Light-Yellow (Yellow)
[2024-07-13 09:19] LABS: Amphetamine Screen, Urine Neg (NEGATIVE); Barbiturate Scree,Urine Neg (NEGATIVE); Benzodiazephine Screen, Urine Neg (NEGATIVE); Cocaine Screen, Urine Neg (NEGATIVE)
[2024-07-13 09:20] LABS: Cannabinoid Screen, Urine Neg (NEGATIVE); Opiate Scree,Urine Neg (NEGATIVE); Phencyclidine Screen, Urine Neg (NEGATIVE)
[2024-07-13 09:55] VITALS: BP 126/69; PULSE 71; RESP 17; TEMP 97.6; O2SAT 98
[2024-07-13] MEDS ORDERED: NIFEdipine ER 30 MG TAB PO SCH (10:00)
[2024-07-13] MEDS ORDERED: ENOXAPARIN SOD 30 MG/0.3 ML SYRINGE SC SCH (10:00)
[2024-07-13] MEDS: NIFEdipine ER 30 MG TAB PO SCH (10:08)
[2024-07-13] MEDS: CLOPIDOGREL BISULFATE 75 MG TAB PO SCH (10:09)
[2024-07-13] MEDS: ASPirin 81 mg TAB PO SCH (10:16)
--- NOTE | 2024-07-13 11:12 | DVH ---
PROCEDURE: MRI BRAIN HEAD WO CONTRAST INDICATION: possible TIA EXAM DATE: 07/13/2024 10:17 AM COMPARISON: CT HEAD WITHOUT CONTRAST on DOS: 07/12/24, HEAD WITHOUT CONTRAST on DOS: 01/16/20 TECHNIQUE: MRI of the brain without intravenous contrast. FINDINGS: Diffusion weighted images of the brain demonstrate no evidence of acute infarction. There is no evidence of acute intracranial hemorrhage, extra-axial collection, mass effect, midline s hift, herniation or hydrocephalus. The ventricles, sulci and cisterns appear age appropriate. There are moderate changes of chronic microvascular ischemic disease. There are no signal abnormalities on the susceptibility weighted sequences. The major vascular flow voids are present. There is sinus mucosal thickening in the left maxillary sinus. The surrounding soft tissues and osse ous structures are unremarkable. IMPRESSION: 1. No evidence of acute infarction, intracranial hemorrhage, mass effect or hydrocephalus. Moderate c hanges of chronic microvascular ischemic disease. HS:Y
--- NOTE | 2024-07-13 12:52 | ECG ---
[facility] Test Date: 2024-07-13 Test Time: 05:19:57 Pat Name: MARY ALICE FIELDS Department: ED Room: 0276 A Gender: F Brickmason: luke : 1935 Requested By: VIRAJ HOLBROOK Order Number: [id number] Reading MD: Hitesh Romero Measurements Intervals [place] Rate: 76 P: -15 RI: 190 QRS: 66 QRSD: 125 T: 8 QT: 402 QTc: 453 Interpretive Statements Sinus rhythm Right bundle branch block Inferior infarct, old Electronically Signed On 07-14-2024 17:41:42 PST by Hitesh Romero Please click the below link to view image of tracing.
[2024-07-13 13:00] VITALS: BP 164/72; PULSE 72; RESP 20; TEMP 97.4; O2SAT 97
--- NOTE | 2024-07-13 13:01 | DVHPNRES ---
Progress Note Date Seen: Jul 13, 2024 Resident Creating Document: DEISY JOHNSTON RESIDENT Medical Necessity Reason Pt with a Central, PICC or Fol: No Subjective Review of Systems Yanique Chaney is a 89-year-old female with a PMH of HTN, dm 2, HLD, thyroid disease status post thyroidectomy, presented to the ED accompanied by granddaughter with the chief complaints of altered mental status since day of admission. As per patient patient when workup early in the mornining today her right hand was having tremor, difficulty in her speech which lasted for 5-6 hours. Granddaughter reported that patient was confused for few hours, did not make sense what she was talking about. Blood pressure in the morning at home was 190/111. Patient and granddaughter reported patient had the same kind of incident 3 weeks before. Reported feeling weakness of the right side. Patient does report having diarrhea 1 week prior to admission without blood. Patient also reported having urinary tract infection as it was diagnosed in the primary care physician's office on Wednesday but she was not any antibiotic. On my assessment patient denies nausea, vomiting, fever, chest pain, palpitations, diaphoresis and other associated symptoms Past Medical History: hypertension, diabetes mellitus type 2, hyperlipidemia, thyroid disease, status post thyroidectomy, history of pulmonary fibrosis Past Surgical History: right hip and knee Sx, cataract Sx Family history: Reviewed, noncontributory Past Social History: Lives alone, nonsmoker, nonalcoholic no drug abuser Allergies: Codeine, levofloxacin, penicillins, sulfa antibiotics Patient seen and examined at the bedside. Patient reported improvement in her symptoms when compared to yesterday. CT head-Mild cerebral volume loss and mild chronic microvascular ischemic change. and brain MRI without contrast showed no evidence of acute infarction, intracranial hemorrhage, mass effect or hydrocephalus. Moderate changes of chronic microvascular ischemic disease. Currently on Plavix, aspirin, nifedipine 60 mg extended release, nitrofurantoin for UTI. CT angio neck and head pending Objective vital signs Vital Sign Date Time Temp Pulse Resp B/P (MAP) Pulse Ox O2 Delivery O2 Flow Rate FiO2 07/13/24 10:08 126/69 07/13/24 08:56 97.6 71 17 97 97.6 07/13/24 08:19 Room Air* 0 21 medications Current Medications Medications Dose Ordered Sig/Sandeep Route Start Time Stop Time Status Last Admin Dose Admin Sodium Chloride 10 ml Q8HR IV 07/13/24 06:00 07/13/24 06:06 10 ML Acetaminophen 325 mg Q4HP PRN PO 07/12/24 22:15 Ondansetron HCl 4 mg Q4HP PRN IV 07/12/24 22:15 Docusate Sodium 100 mg BIDPRN PRN PO 07/12/24 22:15 Nitroglycerin 0.4 mg Q5MINP PRN SL 07/12/24 22:15 Morphine Sulfate 2 mg Q30M PRN IV 07/12/24 22:15 Aspirin 81 mg DAILY PO 07/13/24 10:00 07/13/24 10:16 81 MG Atorvastatin Calcium 40 mg HS PO 07/13/24 22:00 Clopidogrel Bisulfate 75 mg DAILY PO 07/13/24 10:00 07/13/24 10:09 75 MG Pantoprazole Sodium 40 mg DAILY@0600 PO 07/13/24 06:00 Nifedipine 60 mg DAILY PO 07/13/24 10:00 07/13/24 10:08 60 MG Nitrofurantoin Macrocrystals 100 mg BID PO 07/13/24 22:00 Examination Pt is lying on bed General Appearance: Alert, Oriented X3, Cooperative, Not in acute distress HEENT: Atraumatic, Mucous membranes moist/pink Respiratory: Clear to auscultation, Normal air movement, No added sounds Cardiovascular: Regular rate, Normal S1, Normal S2, No murmurs Abdominal: Active bowel sounds, Soft, no distention, no tenderness Extremities: No edema, Normal pulses, No tenderness/swelling Skin: No Significant rash, except past surgical scars Neuro: Normal speech, sensory deficits were seen distal extremities Psych/Mental Status: Mental status NL, Mood NL Nurse was there as sharperone during examination laboratory and microbiology Laboratory Tests 07/13/24 05:29 Test 07/13/24 05:29 Range/Units Serum Glucose 138 H 74-106 mg/dL Labs and/or images reviewed: Labs reviewed by me, Image(s) reviewed by me Problem List/Assessment/Plan Problem List/Assessment/Plan # rule out acute CVA -CT head-Mild cerebral volume loss and mild chronic microvascular ischemic change. - brain MRI without contrast showed no evidence of acute infarction, intracranial hemorrhage, mass effect or hydrocephalus. Moderate changes of chronic microvascular ischemic disease. -carotid Doppler-No hemodynamically significant CCA or ICA stenosis. -EKG sinus rhythm, no acute ST or T-wave changes -pending echo 2D -continue aspirin 81 mg p.o. daily -continue Plavix 75 mg p.o. daily -continue atorvastatin 80 mg p.o. q.h.s. - consider physical therapy - ordered CT angio neck and head, pending # metabolic encephalopathy likely due to UTI versus CVA -CT head-Mild cerebral volume loss and mild chronic microvascular ischemic change. - brain MRI without contrast showed no evidence of acute infarction, intracranial hemorrhage, mass effect or hydrocephalus. Moderate changes of chronic microvascular ischemic disease. -urinalysis revealed leukocyte esterase 3+, WBC 185, bacteria few. --was started was levofloxacin but patient had a reaction like shaking, hallucinating so we changed the antibiotic to Macrobid 100 mg p.o. b.i.d. -pending urine CS # hypertensive urgency vs Emergency - continuously monitor blood pressure --CT head-Mild cerebral volume loss and mild chronic microvascular ischemic change. -carotid Doppler-No hemodynamically significant CCA or ICA stenosis. - initially on hydralazine 10 mg IV q.6h p.r.n. discontinued -continue nifedipine ER XL 60 mg p.o. daily # UTI --urinalysis revealed leukocyte esterase 3+, WBC 185, bacteria few. - initially on levofloxacin but patient unable to tolerate so changed Macrobid 100 mg p.o. b.i.d. -pending CS # bilateral leg swelling ruled out DVT -BNP 93.7, trop I 8 -bilateral lower extremity venous Doppler negative for DVT -ordered Doppler study of the bilateral lower extremity to rule out DVT -pending echo 2D # LETA likely due to VMN -avoid dehydration and nephrotoxic drugs - continuously monitored lab # hypomagnesemia -magnesium 1.1 -ordered magnesium remote mortgage underwriter 1g IV stat -repeat serum magnesium level #Diabetes mellitus type 2 -HGB A1c 6.7 -continue insulin sliding scale # hyperlipidemia -continue atorvastatin 40 mg q.h.s. # thyroid disease, status post thyroidectomy -TSH 3.74 # history of pulmonary fibrosis -follow up outpatient Renal diet No GI be PPX On Plavix Reconciled home meds Goals of care discussed with the patient and family for more than 27 minutes: Full code status Case management discussed with Dr. Marquez, patient and nurse Plan discussed with: Patient My Orders My Orders Orders - DEISY JOHNSTON RESIDENT Procedure Category Date Status Time Ct Angio Neck Contrast CT 07/13/24 Logged 12:07 Stool Bacterial JIMENA 07/13/24 Logged Culture 12:11 Stool Wbc LAB 07/13/24 Logged 12:11 Date of Service: Jul 13, 2024 Billing Provider: VANESSA MARQUEZ MD Common Visit Codes: [id number] INP/OBS CARE(HIGH) Coding Comment Comment Attending Attestation I saw and evaluated the patient. I reviewed the residents note and agree with findings and plan as documented in the residents note except as documented below. 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 Patient had symptoms for 3 weeks. Will consult neurology. DEISY JOHNSTON RESIDENT Jul 13, 2024 13:01 VANESSA MARQUEZ MD Jul 13, 2024 21:31
[2024-07-13] MEDS ORDERED: IOHEXOL 350 MG/ML 100ML IJ ONE (16:36)
[2024-07-13 17:00] VITALS: BP 140/80; PULSE 80; RESP 17; TEMP 97.5; O2SAT 93
--- NOTE | 2024-07-13 17:55 | DVH ---
EXAM: CT ANGIO HEAD/NECK HISTORY: possible cva COMPARISON: Brain MRI dated 07/13/2024, head CT without contrast dated 07/12/2024 TECHNIQUE: CTA imaging of the head was performed through the [place] following the uneventf ul administration of intravenous contrast. Sagittal and coronal reformatted images were obtained from the source data. 3D/MIP post-processing of the source data set was performed and reviewed by the rad iologist. Radiation Dose Information: CT Dose: CTDI volume is 29.58 mGy. Dose-length product is 1339.98 mGy*cm All CT scans at this medical facility are performed using dose modulation techniques as appropriate t o a performed exam including the following: Automated exposure control was utilized; adjustment of th e MA and/or KV according to patient size; and use of iterative reconstruction technique. FINDINGS: CTA Neck: Aortic Arch: Conventional branching. Right brachiocephalic artery: Unremarkable. Right carotid artery: Tortuous retropharyngeal proximal to the bulb. Mild atherosclerotic calcificati on of the carotid bulb and proximal ICA noted with less than 50% stenosis. Right subclavian artery: Unremarkable. Right vertebral artery: Unremarkable. Left carotid artery: Tortuous retropharyngeal proximal to the bulb. Mild atherosclerotic calcificatio n of the carotid bulb and proximal ICA noted with less than 50% stenosis. Left subclavian artery: Unremarkable. Left vertebral artery: Unremarkable. OTHER: Interstitial and alveolar opacities are seen in bilateral lung apices. CTA Head: [place]: The arteries of [place] are unremarkable, without evidence of aneurysm, steno sis or thrombosis. Atherosclerotic calcification of the bilateral carotid siphons less than 50% steno sis. Mild alcified plaques of the bilateral intracranial vertebral arteries. Mild atherosclerotic ca lcification of the tip of artery. Dural venous: Grossly unremarkable. Other: Severe chronic left maxillary sinusitis with complete opacification of the sinus and occlusion of the left ostiomeatal complex. IMPRESSION: 1. No large vessel occlusion or high-grade stenosis in the arteries of the head and neck. No aneurysm is identified. 2. Biapical pulmonary opacities may represent edema or pneumonia. Recommend clinical and biochemical correlation.
[2024-07-13 20:00] VITALS: PULSE 77; RESP 18; O2SAT 95
[2024-07-13] MEDS ORDERED: cefTRIAXone 1GM/50ML D5W 50 ML IV SCH (21:00)
[2024-07-13] MEDS: ATORVASTATIN 20 MG TAB PO SCH (21:02)
[2024-07-13] MEDS: NITROFURANTOIN 100 mg CAP PO SCH (21:02)
[2024-07-13] MEDS ORDERED: ATORVASTATIN 20 MG TAB PO SCH (22:00)
[2024-07-14] VITALS (7 sets, daily range): BP systolic 126–154; BP diastolic 56–80; PULSE 82–100; RESP 14–17; TEMP 97.6–98.4; O2SAT 95–99
[2024-07-14] MEDS: ONDANSETRON HCL 4 MG/2 ML VIAL IV ONE (09:38)
--- NOTE | 2024-07-14 09:51 | DVHSR ---
APPROVED REPORT EXAM: Two-dimensional and M-mode echocardiogram with Doppler and color Doppler. Blood Pressure: 150/60 mmHg INDICATION CVA/TIA: RISK FACTORS Height: 5', Weight: 130 DIMENSIONS LVDd3.9 (3.8-5.7cm)LA (2D)3.6 (1.9-4.0cm)Aortic Root3.3 (2.0-3.7cm) LVDs2.6 (2.5-4.0cm)LA (MM) (1.9-4.0cm)Aortic Cusp Exc1.4 (1.5-2.0cm) EF (%) 63.0 (55-70%)Rt. Atrium3.4 (1.9-4.0cm)Asc. Aorta cm IVSd1.1 (0.7-1.1cm)RV (D) (1.8-2.4cm) PWd0.9 (0.7-1.1cm) Mitral Valve MitralMitral Stenosis E wave0.90m/sMV Mean GR.mmHg A wave1.40m/sMV Peak GR.mmHg E/A ratio0.62D MVAcm2 Aortic Valve Aortic ValveAortic Stenosis V10.80m/Xin Mean GR.5mmHg V21.60m/Xin Peak GR.11mmHg LVOT Diameter2.0 (1.8-2.4cm)Doppler AVA1.57cm2 Pulmonic Valve V21.00m/s Conclusion Normal left ventricular size and dimension. Normal left ventricular systolic function estimated ejec tion fraction 55%. There is a grade 1 diastolic dysfunction. Normal right ventricular size and dimension. Normal right ventricular systolic function. Normal biatrial size and dimension. Normal aortic valve structure and function. Normal mitral valve structure and function. Normal tricuspid valve structure and function. The pulmonary valve is grossly normal. No pericardial effusion.
[2024-07-14] MEDS: DOCUSATE SOD 100 MG CAP PO PRN (10:24)
[2024-07-14] MEDS ORDERED: DEXTROSE (50%) 50ML SYRG IV PRN (16:15)
[2024-07-14] MEDS: InsuLIN REG 1unit/0.01ml Soln (100units/ml) SC SCH (17:00)
--- NOTE | 2024-07-14 17:22 | DVHPNRES ---
Progress Note Date Seen: Jul 14, 2024 Resident Creating Document: DEISY JOHNSTON RESIDENT Medical Necessity Reason Pt with a Central, PICC or Fol: No Subjective Review of Systems Yanique Chaney is a 89-year-old female with a PMH of HTN, dm 2, HLD, thyroid disease status post thyroidectomy, presented to the ED accompanied by granddaughter with the chief complaints of altered mental status since day of admission. Patient seen and examined at the bedside. Patient reported improvement in her symptoms when compared to yesterday. CT head-Mild cerebral volume loss and mild chronic microvascular ischemic change. and brain MRI without contrast showed no evidence of acute infarction, intracranial hemorrhage, mass effect or hydrocephalus. Moderate changes of chronic microvascular ischemic disease. Currently on Plavix, aspirin, nifedipine 60 mg extended release, nitrofurantoin for UTI. CT angio neck and head showed no acute changes but showing findings suggestive of questionable pneumonia, currently on insulin sliding scale, and given MiraLax to get a stool for the culture due to history of diarrhea. Patient reports: No new complaints Objective vital signs Vital Sign Date Time Temp Pulse Resp B/P (MAP) Pulse Ox O2 Delivery O2 Flow Rate FiO2 07/14/24 16:36 98.2 97 14 151/70 (97) 95 98.2 07/13/24 20:00 Room Air* 0 21 Total Intake and Output 07/13/24 07/13/24 07/14/24 15:00 23:00 07:00 Intake Total 150 ml 240 ml Balance 150 ml 240 ml medications Current Medications Medications Dose Ordered Sig/Sandeep Route Start Time Stop Time Status Last Admin Dose Admin Sodium Chloride 10 ml Q8HR IV 07/13/24 06:00 07/14/24 14:47 10 ML Acetaminophen 325 mg Q4HP PRN PO 07/12/24 22:15 Docusate Sodium 100 mg BIDPRN PRN PO 07/12/24 22:15 07/14/24 10:24 100 MG Aspirin 81 mg DAILY PO 07/13/24 10:00 07/14/24 13:24 81 MG Clopidogrel Bisulfate 75 mg DAILY PO 07/13/24 10:00 07/14/24 10:23 75 MG Pantoprazole Sodium 40 mg DAILY@0600 PO 07/13/24 06:00 07/14/24 05:22 40 MG Nifedipine 60 mg DAILY PO 07/13/24 10:00 07/14/24 10:24 60 MG Nitrofurantoin Macrocrystals 100 mg BID PO 07/13/24 22:00 07/14/24 10:23 100 MG Atorvastatin Calcium 80 mg HS PO 07/13/24 22:00 07/13/24 21:02 80 MG Diagnostic Test (Pha) 1 strip ACHS 07/14/24 17:00 Insulin Human Regular ACHS SC 07/14/24 17:00 Dextrose 50 ml UD PRN IV 07/14/24 16:15 Melatonin 10 mg HS PO 07/15/24 22:00 Examination Pt is lying on bed General Appearance: Alert, Oriented X3, Cooperative, Not in acute distress HEENT: Atraumatic, Mucous membranes moist/pink Respiratory: Clear to auscultation, Normal air movement, No added sounds Cardiovascular: Regular rate, Normal S1, Normal S2, No murmurs Abdominal: Active bowel sounds, Soft, no distention, no tenderness Extremities: No edema, Normal pulses, No tenderness/swelling Skin: No Significant rash, except past surgical scars Neuro: Normal speech, sensory deficits were seen distal extremities Psych/Mental Status: Mental status NL, Mood NL Nurse was there as sharperone during examination laboratory and microbiology Laboratory Tests 07/13/24 05:29 Test 07/13/24 05:29 Range/Units Serum Glucose 138 H 74-106 mg/dL Microbiology Date/Time Source Procedure Growth Status 07/13/24 08:10 Nose MRSA Screen - Final Complete 07/13/24 08:10 Voided Urine Urine Culture - Preliminary Resulted 07/12/24 23:01 Blood Blood Culture - Preliminary NO GROWTH AFTER 24 HOURS OF INCUBATION. Resulted Labs and/or images reviewed: Labs reviewed by me, Image(s) reviewed by me Problem List/Assessment/Plan Problem List/Assessment/Plan # rule out acute CVA -CT head-Mild cerebral volume loss and mild chronic microvascular ischemic change. - brain MRI without contrast showed no evidence of acute infarction, intracranial hemorrhage, mass effect or hydrocephalus. Moderate changes of chronic microvascular ischemic disease. -carotid Doppler-No hemodynamically significant CCA or ICA stenosis. -EKG sinus rhythm, no acute ST or T-wave changes -pending echo 2D -continue aspirin 81 mg p.o. daily -continue Plavix 75 mg p.o. daily -continue atorvastatin 80 mg p.o. q.h.s. - consider physical therapy - ordered CT angio neck and head, no acute changes # metabolic encephalopathy likely due to UTI versus CVA -CT head-Mild cerebral volume loss and mild chronic microvascular ischemic change. - brain MRI without contrast showed no evidence of acute infarction, intracranial hemorrhage, mass effect or hydrocephalus. Moderate changes of chronic microvascular ischemic disease. -urinalysis revealed leukocyte esterase 3+, WBC 185, bacteria few. --was started was levofloxacin but patient had a reaction like shaking, hallucinating so we changed the antibiotic to Macrobid 100 mg p.o. b.i.d. -pending urine CS # hypertensive urgency vs Emergency - continuously monitor blood pressure --CT head-Mild cerebral volume loss and mild chronic microvascular ischemic change. -carotid Doppler-No hemodynamically significant CCA or ICA stenosis. - initially on hydralazine 10 mg IV q.6h p.r.n. discontinued -continue nifedipine ER XL 60 mg p.o. daily # UTI --urinalysis revealed leukocyte esterase 3+, WBC 185, bacteria few. - initially on levofloxacin but patient unable to tolerate so changed Macrobid 100 mg p.o. b.i.d. -pending CS # bilateral leg swelling ruled out DVT -BNP 93.7, trop I 8 -bilateral lower extremity venous Doppler negative for DVT -ordered Doppler study of the bilateral lower extremity to rule out DVT -pending echo 2D # LETA likely due to VMN -avoid dehydration and nephrotoxic drugs - continuously monitored lab # hypomagnesemia -magnesium 1.1 -ordered magnesium medical technical writer 1g IV stat -repeat serum magnesium level #Diabetes mellitus type 2 -HGB A1c 6.7 -continue insulin sliding scale # hyperlipidemia -continue atorvastatin 40 mg q.h.s. # thyroid disease, status post thyroidectomy -TSH 3.74 # history of pulmonary fibrosis -follow up outpatient Renal diet No GI be PPX On Plavix Reconciled home meds Goals of care discussed with the patient and family for more than 27 minutes: Full code status Case management discussed with Dr. Marquez, patient and nurse Plan discussed with: Patient My Orders My Orders Orders - DEISY JOHNSTON RESIDENT Procedure Category Date Status Time Glucose Blood PHA 07/14/24 In Process (Accu-Chek Comfort 17:00 Insulin R (Human) PHA 07/14/24 In Process (Insulin R) 17:00 Dextrose 50% Syringe PHA 07/14/24 In Process 16:15 Melatonin (Melatonin) PHA 07/14/24 In Process 22:00 Melatonin (Melatonin) PHA 07/15/24 In Process 22:00 Renal DIET 07/14/24 Transmitted Standard(2gna,3gk,Lopho) Dinner Date of Service: Jul 14, 2024 Billing Provider: VANESSA MARQUEZ MD Common Visit Codes: [id number] INP/OBS CARE(HIGH) Coding Comment Comment Attending Attestation I saw and evaluated the patient. I reviewed the residents note and agree with findings and plan as documented in the residents note except as documented below. Patient will need further workup from neurologist, personally I do not think tele neurology will be sufficient for her case. Discussed with family, once more stable we will discharge with Neurology follow up. Stroke and stroke mimics ruled out DEISY JOHNSTON RESIDENT Jul 14, 2024 17:22 VANESSA MARQUEZ MD Jul 14, 2024 21:01
[2024-07-14] MEDS: POLYETHYLENE GLYCOL 17 GM PWDR PO ONE (17:44)
[2024-07-14] MEDS: ACCU-CHEK COMFORT CURVE STRIP VI SCH (17:57)
[2024-07-14] MEDS ORDERED: levoFLOXacin 750MG 150 ML IV SCH ×2 (22:00)
[2024-07-14] MEDS: MELATONIN 5 MG TAB PO ONE (22:06)
[2024-07-14] MEDS: PRAMIPEXOLE DIHYDROCHLORIDE MO 0.25 MG TAB PO ONE (22:18)
[2024-07-14 23:25] LABS: Rapid Influenza A Negative (Negative); Rapid Influenza B Negative (Negative)
[2024-07-14 23:33] LABS: COVID19 ANTIGEN SOFIA FIA NEGATIVE (NEGATIVE)
[2024-07-15 01:00] VITALS: BP 107/47; PULSE 88; RESP 13; TEMP 98.3; O2SAT 90
[2024-07-15 04:51] VITALS: BP 117/58; PULSE 89; RESP 14; TEMP 98.1; O2SAT 96
[2024-07-15] MEDS: PRAMIPEXOLE DIHYDROCHLORIDE MO 0.25 MG TAB PO SCH (04:54)
[2024-07-15 05:44] LABS: Basophils # (auto) 0 10 ^3/uL (0-0.2); Basophils % (auto) 0.5 % (0.0-2.0); Eosinophils # (auto) 0.2 10 ^3/uL (0-0.8); Eosinophils % (auto) 1.7 % (0.0-7.0); Hematocrit 34.5 % (36.0-46.0); Hemoglobin 11.7 g/dL (12.2-16.2); Lymphocytes # (auto) 1.9 10 ^3/uL (0.4-5.4); Lymphocytes % (auto) 18.8 % (10.0-50.0); Mean Corpuscular Hemoglobin 31.2 pg (28.0-32.0); Mean Corpuscular Volume 91.8 fL (80.0-100.0); Monocytes # (auto) 0.7 10 ^3/uL (0-1.3); Monocytes % (auto) 6.9 % (0.0-12.0); Neutrophils # (auto) 7.3 10 ^3/uL (1.6-8.6); Neutrophils % (auto) 72.1 % (37.0-80.0); Nucleated Red Blood Cells % 0.1 %; Platelet Count (auto) 240 10^3/uL (140-450); Red Blood Cells 3.76 10^6/uL (4.0-5.20)
[2024-07-15 05:58] LABS: Anion Gap 12 (5-15); Carbon Dioxide 21 mmol/L (20-31); Chloride 104 mmol/L (98-107); Potassium 3.4 mmol/L (3.5-5.1); Sodium 137 mmol/L (136-145)
[2024-07-15 06:04] LABS: BUN/Creatinine Ratio 14.9 (10.0-20.0); Blood Urea Nitrogen 18 mg/dL (9-23); Glucose 219 mg/dL (74-106)
[2024-07-15 06:05] LABS: Magnesium 1.5 mg/dL (1.6-2.6)
[2024-07-15 06:06] LABS: Phosphorus 2.9 mg/dL (2.4-5.1)
[2024-07-15 09:00] VITALS: BP 142/66; PULSE 86; RESP 18; TEMP 98.7; O2SAT 94
[2024-07-15] MEDS ORDERED: NIFE1TAB31 PO (09:59)
[2024-07-15] MEDS ORDERED: NITR-87 PO (09:59)
[2024-07-15] MEDS ORDERED: ACET-1882 PO (09:59)
[2024-07-15] MEDS ORDERED: ATOR20TA50 PO (09:59)
[2024-07-15] MEDS ORDERED: ASPI-325 PO (09:59)
[2024-07-15] MEDS ORDERED: levoFLOXacin 750MG 150 ML IV SCH (10:00)
[2024-07-15] MEDS: POTASSIUM EFFERVESENT TAB 25 MEQ PO ONE (10:17)
[2024-07-15] MEDS: MAGNESIUM OXIDE 400 MG TAB PO ONE (10:17)
--- NOTE | 2024-07-15 12:29 | DVHDSRES ---
Discharge Summary Date of Admission Resident Creating Document: LIZ CORDON Jul 12, 2024 at 22:14 Date of Discharge: Jul 15, 2024 Labs/Diagnostic Data: Laboratory Results Test 07/15/24 06:47 07/15/24 05:21 07/15/24 04:00 07/14/24 22:30 POC Glucose 241 mg/dl (70-106) White Blood Count 10.0 10^3/uL (4.4-10.8) Red Blood Count 3.76 10^6/uL (4.0-5.20) Hemoglobin 11.7 g/dL (12.2-16.2) Hematocrit 34.5 % (36.0-46.0) Mean Corpuscular Volume 91.8 fL (80.0-100.0) Mean Corpuscular Hemoglobin 31.2 pg (28.0-32.0) Mean Corpuscular Hemoglobin Concent 34.0 g/dL (32.0-36.0) Red Cell Distribution Width 14.0 % (11.8-14.3) Platelet Count 240 10^3/uL (140-450) Mean Platelet Volume 8.7 fL (6.9-10.8) Neutrophils (%) (Auto) 72.1 % (37.0-80.0) Lymphocytes (%) (Auto) 18.8 % (10.0-50.0) Monocytes (%) (Auto) 6.9 % (0.0-12.0) Eosinophils (%) (Auto) 1.7 % (0.0-7.0) Basophils (%) (Auto) 0.5 % (0.0-2.0) Neutrophils # (Auto) 7.3 10 ^3/uL (1.6-8.6) Lymphocytes # (Auto) 1.9 10 ^3/uL (0.4-5.4) Monocytes # (Auto) 0.7 10 ^3/uL (0-1.3) Eosinophils # (Auto) 0.2 10 ^3/uL (0-0.8) Basophils # (Auto) 0 10 ^3/uL (0-0.2) Nucleated Red Blood Cells 0.1 % Sodium Level 137 mmol/L (136-145) Potassium Level 3.4 mmol/L (3.5-5.1) Chloride Level 104 mmol/L (98-107) Carbon Dioxide Level 21 mmol/L (20-31) Anion Gap 12 (5-15) Blood Urea Nitrogen 18 mg/dL (9-23) Creatinine 1.21 mg/dL (0.550-1.02) Glomerular Filtration Rate Calc 43 mL/min (>90) BUN/Creatinine Ratio 14.9 (10.0-20.0) Serum Glucose 219 mg/dL (74-106) Calcium Level 10.0 mg/dL (8.7-10.4) Phosphorus Level 2.9 mg/dL (2.4-5.1) Magnesium Level 1.5 mg/dL (1.6-2.6) Stool for White Cells Rare Influenza Type A Antigen Negative (Negative) Influenza Type B Antigen Negative (Negative) SARS-CoV-2 Antigen (Rapid) Negative (NEGATIVE) Test 07/13/24 08:10 07/13/24 05:29 07/12/24 23:09 07/12/24 23:01 Urine Color Light-yellow (Yellow) Urine Clarity Turbid (Clear) Urine pH 5.5 (5.0-9.0) Urine Specific [place] 1.007 (1.001-1.035) Urine Protein 1+ (Negative) Urine Ketones 1+ (Negative) Urine Blood Trace /uL (Negative) Urine Nitrite Negative (Negative) Urine Bilirubin Negative (Negative) Urine Urobilinogen Normal mg/dL (Negative) Urine Leukocyte Esterase 3+ /uL (Negative) Urine RBC 10 /hpf (0 - 4) Urine WBC 484 /hpf (0 - 5) Urine WBC Clumps Present /hpf (None Seen) Urine Squamous Epithelial Cells None seen /hpf (<5) Urine Bacteria Mod /hpf (None Seen) Urine Glucose Normal mg/dL (Normal) Urine Opiates Screen Neg (NEGATIVE) Urine Fentanyl Screen Neg (NEGATIVE) Urine Barbiturates Screen Neg (NEGATIVE) Urine Phencyclidine Screen Neg (NEGATIVE) Urine Amphetamines Screen Neg (NEGATIVE) Urine Benzodiazepines Screen Neg (NEGATIVE) Urine Cocaine Screen Neg (NEGATIVE) Urine Cannabinoids Screen Neg (NEGATIVE) D-Dimer, Quantitative 0.94 mg/L FEU (0.0-0.49) Total Bilirubin 0.4 mg/dL (0.2-1.0) Aspartate Amino Transferase (AST) 15 U/L (13-40) Alanine Aminotransferase (ALT) 22 U/L (7-40) Alkaline Phosphatase 66 U/L (46-116) Total Protein 6.6 g/dL (5.7-8.2) Albumin 4.0 g/dL (3.2-4.8) Triglycerides Level 122 mg/dL (< 150) Cholesterol Level 116 mg/dL (< 200) LDL Cholesterol 50 mg/dL (< 100) HDL Cholesterol 44 mg/dL (40-59) Vitamin D 25-Hydroxy 44.0 ng/mL (30.0-100) B-Type Natriuretic Peptide 93.70 pg/mL (0-100) Hemoglobin A1c 6.7 % A1C (<5.7) Troponin I High Sensitivity 8 ng/L (</=34) Test 07/12/24 18:38 07/12/24 18:23 Urine Hyaline Casts Few /lpf (0 - 2) Urine Mucus Few (None Seen) Vitamin B12 Level 1388 pg/mL (211-911) Thyroid Stimulating Hormone (TSH) 3.74 uIU/mL (0.55-4.78) Other Laboratory Tests 07/15/24 05:21 Brief Hx & Hospital Course: Yanique Chaney is a 89-year-old female patient who presents to ED accompanied by granddaughter with chief complaint right-sided weakness which started the day of her admission, associated with nonbloody diarrhea and progressive altered mental status which started three weeks before her admission. Denies fever, chills, palpitation, syncope, chest pain, dyspnea, nausea, vomiting, abdominal pain, recent travel, sick contacts, dysuria, bleeding and other motor or sensory deficits. Past medical history: HTN, diabetes, HLD, hypothyroidism secondary to thyroidectomy Surgical history: Thyroidectomy Family history: Noncontributory Social history: Lives alone in [place] (son lives across the street). Denies current tobacco, alcohol and other drug abuse. Allergies: Codeine, levofloxacin, penicillin, sulfa antibiotics Home medication: Brief hospital course: Metabolic encephalopathy secondary to probable UTI versus gastroenteritis associated with hypertensive urgency and LETA, requiring empiric IV antibiotic, antihypertensive medication and electrolyte replenishment. On admission completed head CT an MRI which ruled out acute stroke, rest of stroke workup negative (includes echocardiogram, angio CT of neck and head and carotid ultrasound). [place] [address] colonies of Gram-negative rods, stool white blood cells rare, blood cultures were negative and influenza + COVID swab were negative. Completed echocardiogram which showed LVEF of 55% and grade 1 diastolic dysfunction. On physical examination patient presented heaviness on right upper and lower limb and tactile alteration on left upper and lower limb, recommend follow up as outpatient with [facility] due to non correlating physical examination and head CT/MRI findings additionally granddaughter is concerned of probable undiagnosed dementia, also may benefit from geriatric specialist follow-up. Patient hemodynamically stable, asymptomatic, in condition to be discharged home. Was granted under optimal medical therapy (aspirin, statin, antihypertensive medication and Macrobid), gave her advice on healthy lifestyle habits, and follow-up as outpatient with PCP, neurologist in geriatric specialist. DIAGNOSIS #Metabolic encephalopathy probably secondary to UTI versus gastroenteritis #Ruled out CVA #Hypertensive urgency #UTI #Ruled out DVT # LETA likely due to VMN #Hypomagnesemia #Diabetes mellitus type 2 #Hyperlipidemia #Hypothyroidism secondary to thyroidectomy #Questionable history of pulmonary fibrosis Goals of care discussed with the patient and family for more than 27 minutes: Full code status Case management discussed with Dr. Marquez, patient and nurse Physical examination Patient lying in bed, in no acute distress General: Lucid, afebrile, mucosae are moist Cardiovascular: Normal S1 and S2. No murmurs, gallops or rubs Respiratory: Normal ventilation mechanics. Clear lung sounds on auscultation Abdomen: Soft, nontender, no organomegaly, normal bowel sounds MSK/skin: Mobilizes 4 limbs. Skin is dry and warm Neurological: Oriented in 3 spheres. Presents heaviness on right upper and lower limbs, and decreased sensitivity in left upper and lower limbs. No other motor no sensitive deficits. Pupils are isocoric and reactive Operations or Procedures CLINICAL HISTORY: aloc TECHNIQUE: Helical imaging carried out from skull base to vertex without intravenous contrast. This exam was performed according to our departmental dose optimization program. Up-to-date CT equipment and radiation dose reduction techniques are utilized as appropriate. CTDIVol: [CTDIvol] mGy DLP: 1151.77 mGy-cm WID: COMPARISON: CT head from 01/16/2020 FINDINGS: Mild cerebral volume loss with concordant prominence of the subarachnoid spaces and ventricles. Mild patchy low-attenuation throughout the cerebral white matter consistent with nonspecific white matter disease. There is no midline shift or mass effect. The pickett white matter interfaces are maintained. The basal cisterns are patent. There is no evidence of acute intracranial hemorrhage or extra-axial fluid collection. The mastoid air cells are well-aerated. There is complete opacification of the left maxillary sinus. There is complete opacification of the atretic left sphenoid sinus. There sclerosis of the left maxillary sinus garvey. Prior ocular lens replacements. IMPRESSION: 1. No acute intracranial abnormality. 2. Mild cerebral volume loss and mild chronic microvascular ischemic change. 3. Chronic left maxillary sinusitis. ATED BY: FRANCA BHAT MD DICTATED DATE/TIME: 07/12/24 1936 CHEST RADIOGRAPH Indication: tachypnea Technique: Single frontal view of the chest was obtained COMPARISON: CHEST PORTABLE on DOS: 01/16/20 FINDINGS: Lines and Tubes: None Lungs: Clear Pleura: No effusion. No pneumothorax. Cardiomediastinal contours: Unremarkable Bones: Unremarkable IMPRESSION: 1. No acute disease. ATED BY: SAPPHIRE PARSONS MD DICTATED DATE/TIME: 07/12/24 2341 US CAROTID DOPPLER CLINICAL INDICATION: TIA TECHNIQUE: Multiple grayscale, color Doppler and spectral Doppler ultrasound images were obtained throughout both carotid systems. COMPARISON: None FINDINGS: RIGHT: CCA PSV: 78 cm/s ECA PSV: 104 cm/s ICA PSV: 126 cm/s ICA EDV: 26 cm/s ICA/CCA Ratio: 1.6 Vertebral artery: Patent, antegrade flow. Grayscale images demonstrate no significant plaque or visible stenosis. Spectral analysis demonstrates no hemodynamically significant CCA or ICA stenosis. LEFT: CCA PSV: 66 cm/s ECA PSV: 90 cm/s ICA PSV: 115 cm/s ICA EDV: 24 cm/s ICA/CCA Ratio: 1.7 Vertebral artery: Patent, antegrade flow. Mild calcified plaque at the left carotid bifurcation. Spectral analysis demonstrates no hemodynamically significant CCA or ICA stenosis. IMPRESSION: No hemodynamically significant CCA or ICA stenosis. ATED BY: FRANCA BHAT MD DICTATED DATE/TIME: 07/13/24 0046 Bilateral lower extremity venous duplex Clinical History: Bilateral leg swelling Technique: Duplex Doppler evaluation of the deep venous systems of both lower extremities from the common femoral veins to the popliteal veins including color Doppler and spectral/pulsed waveform analysis was performed. Findings: RIGHT SIDE: The common femoral vein demonstrates appropriate compressibility and waveform variability. There is compressibility/patency of the great saphenous vein at the proximal thigh. The femoral vein demonstrates appropriate compressibility and waveform variability. The deep femoral vein demonstrates appropriate compressibility and waveform variability. The popliteal vein demonstrates appropriate compressibility and waveform variability. There is normal compressibility at the tibioperoneal trunk. LEFT SIDE: The common femoral vein demonstrates appropriate compressibility and waveform variability. There is compressibility/patency of the great saphenous vein at the proximal thigh. The femoral vein demonstrates appropriate compressibility and waveform variability. The deep femoral vein demonstrates appropriate compressibility and waveform variability. The popliteal vein demonstrates appropriate compressibility and waveform variability. There is normal compressibility at the tibioperoneal trunk. Impression: No right or left femoropopliteal venous thrombosis. ATED BY: ALYSSA ALLISON MD DICTATED DATE/TIME: 07/13/24 0353 PROCEDURE: MRI BRAIN HEAD WO CONTRAST INDICATION: possible TIA EXAM DATE: 07/13/2024 10:17 AM COMPARISON: CT HEAD WITHOUT CONTRAST on DOS: 07/12/24, HEAD WITHOUT CONTRAST on DOS: 01/16/20 TECHNIQUE: MRI of the brain without intravenous contrast. FINDINGS: Diffusion weighted images of the brain demonstrate no evidence of acute infarction. There is no evidence of acute intracranial hemorrhage, extra-axial collection, mass effect, midline shift, herniation or hydrocephalus. The ventricles, sulci and cisterns appear age appropriate. There are moderate changes of chronic microvascular ischemic disease. There are no signal abnormalities on the susceptibility weighted sequences. The major vascular flow voids are present. There is sinus mucosal thickening in the left maxillary sinus. The surrounding soft tissues and osseous structures are unremarkable. IMPRESSION: 1. No evidence of acute infarction, intracranial hemorrhage, mass effect or hydrocephalus. Moderate changes of chronic microvascular ischemic disease. HS:Y ATED BY: CHARLIE LYNN MD DICTATED DATE/TIME: 07/13/24 1110 EXAM: CT ANGIO HEAD/NECK HISTORY: possible cva COMPARISON: Brain MRI dated 07/13/2024, head CT without contrast dated 07/12/2024 TECHNIQUE: CTA imaging of the head was performed through the [place] of [place] following the uneventful administration of intravenous contrast. Sagittal and coronal reformatted images were obtained from the source data. 3D/MIP post- processing of the source data set was performed and reviewed by the radiologist. Radiation Dose Information: CT Dose: CTDI volume is 29.58 mGy. Dose-length product is 1339.98 mGy*cm All CT scans at this medical facility are performed using dose modulation techniques as appropriate to a performed exam including the following: Automated exposure control was utilized; adjustment of the MA and/or KV according to patient size; and use of iterative reconstruction technique. FINDINGS: CTA Neck: Aortic Arch: Conventional branching. Right brachiocephalic artery: Unremarkable. Right carotid artery: Tortuous retropharyngeal proximal to the bulb. Mild atherosclerotic calcification of the carotid bulb and proximal ICA noted with less than 50% stenosis. Right subclavian artery: Unremarkable. Right vertebral artery: Unremarkable. Left carotid artery: Tortuous retropharyngeal proximal to the bulb. Mild atherosclerotic calcification of the carotid bulb and proximal ICA noted with less than 50% stenosis. Left subclavian artery: Unremarkable. Left vertebral artery: Unremarkable. OTHER: Interstitial and alveolar opacities are seen in bilateral lung apices. CTA Head: [place] of [place]: The arteries of [place] are unremarkable, without evidence of aneurysm, stenosis or thrombosis. Atherosclerotic calcification of the bilateral carotid siphons less than 50% stenosis. Mild alcified plaques of the bilateral intracranial vertebral arteries. Mild atherosclerotic calcification of the tip of artery. Dural venous: Grossly unremarkable. Other: Severe chronic left maxillary sinusitis with complete opacification of the sinus and occlusion of the left ostiomeatal complex. IMPRESSION: 1. No large vessel occlusion or high-grade stenosis in the arteries of the head and neck. No aneurysm is identified. 2. Biapical pulmonary opacities may represent edema or pneumonia. Recommend clinical and biochemical correlation. ATED BY: CARYL NOLAND MD DICTATED DATE/TIME: 07/13/24 8966 EXAM: Two-dimensional and M-mode echocardiogram with Doppler and color Doppler. Blood Pressure: 150/60 mmHg INDICATION CVA/TIA: RISK FACTORS Height: 5', Weight: 130 DIMENSIONS LVDd 3.9 (3.8-5.7cm) LA (2D) 3.6 (1.9-4.0cm) Aortic Root 3.3 (2.0- 3.7cm) LVDs 2.6 (2.5-4.0cm) LA (MM) (1.9-4.0cm) Aortic Cusp Exc 1.4 (1.5- 2.0cm) EF (%) 63.0 (55-70%) Rt. Atrium 3.4 (1.9-4.0cm) Asc. Aorta cm IVSd 1.1 (0.7-1.1cm) RV (D) (1.8-2.4cm) PWd 0.9 (0.7-1.1cm) Mitral Valve Mitral Mitral Stenosis E wave 0.90m/s MV Mean GR. mmHg A wave 1.40m/s MV Peak GR. mmHg E/A ratio 0.6 2D MVA cm2 Aortic Valve Aortic Valve Aortic Stenosis V1 0.80m/s AO Mean GR. 5mmHg V2 1.60m/s AO Peak GR. 11mmHg LVOT Diameter 2.0 (1.8-2.4cm) Doppler RANCHO 1.57cm2 Pulmonic Valve V2 1.00m/s Conclusion Normal left ventricular size and dimension. Normal left ventricular systolic function estimated ejection fraction 55%. There is a grade 1 diastolic dysfunction. Normal right ventricular size and dimension. Normal right ventricular systolic function. Normal biatrial size and dimension. Normal aortic valve structure and function. Normal mitral valve structure and function. Normal tricuspid valve structure and function. The pulmonary valve is grossly normal. No pericardial effusion. SIGNED BY: MIAH MISHRA MD SIGNED DATE/TIME: 07/14/24 7990 Condition at Discharge: Fair Final Diagnosis/Problems List #Metabolic encephalopathy probably secondary to UTI versus gastroenteritis #Ruled out CVA #Hypertensive urgency #UTI #Ruled out DVT # LETA likely due to VMN #Hypomagnesemia #Diabetes mellitus type 2 #Hyperlipidemia #Hypothyroidism secondary to thyroidectomy #Questionable history of pulmonary fibrosis Discharge Disposition: Home SNF Discharge Will this Physician continue t: No Discharge Instruct/Medications Diet: Consistent carbohydrate, Cardiac 2g Na,low cholest Activity: No Restrictions, As Tolerated Follow Up/Referral: PCP Neurology Medications: Per EMR Discharge Statement: "Patient was advised to return to the ER or call 911 if any headaches, dizziness, shortness of breath, chest pain, abdominal pain, bleeding, fevers, or worsening of medical condition. Patient was counseled about treatment plan, medications, possible side effects, patientverbalized understanding. All questions were answered to the best of my ability. This discharge took greater then 30 minutes in planning, reviewing documentation, counseling the patient, and discussing with other team members." ASSESSMENT ASSESSMENT Assessment Probable UTI vs gastroenteritis, associated with hypertensive urgency Date of Service: Jul 15, 2024 Billing Provider: VANESSA MARQUEZ MD Common Visit Codes: 02331-JXC/OBS DISCH DAY >30min LIZ CORDON RESIDENT Jul 15, 2024 12:29 VANESSA MARQUEZ MD Jul 15, 2024 22:01
[2024-07-15 12:39] VITALS: BP 150/57; PULSE 89; RESP 16; TEMP 98.4; O2SAT 98
[2024-07-15] MEDS ORDERED: MELATONIN 5 MG TAB PO SCH (22:00)
== END 2024-07-15 14:45 | disposition home or self-care (01) | DRG 689 ==
LOC: ER 18:09 → OVERFLOW 22:14 → WEST WING 07-13 08:59
PROVIDERS: ADMIT Student in an Organized Health Care Education/Training Program; ATTEND Student in an Organized Health Care Education/Training Program
DX: N30.01 Acute cystitis with hematuria (principal); G93.41 Metabolic encephalopathy; N17.0 Acute kidney failure with tubular necrosis; I16.0 Hypertensive urgency; E11.9 Type 2 diabetes mellitus without complications; E78.5 Hyperlipidemia, unspecified; E86.0 Dehydration; I10 Essential (primary) hypertension; E83.42 Hypomagnesemia; Z82.49 Family history of ischemic heart disease and other diseases of the circulatory system; Z83.3 Family history of diabetes mellitus; Z90.710 Acquired absence of both cervix and uterus; Z79.4 Long term (current) use of insulin
CPT/HCPCS: 36415; 70450; 70496; 70551; 71045; 80048; 80053; 80061; 80307; 81001; 82306; 82607; 82962; 83036; 83735; 83880; 84100; 84443; 84484; 85025; 85048; 85379; 87040; 87045; 87081; 87086; 87088; 87186; 87426; 87427; 87804; 93005; 93306; 93886; 93970; 97163; G0378; J1815; J1956; J2405

== ENCOUNTER → 2024-08-31 | Outpatient (CLI) | payer OTHER, MEDICAID ==
[~2024-08-31] MED LIST changes: +ACET-1882 PO; -AMLO1TAB23 PO; +ASPI-325 PO; +ATOR20TA50 PO; -ENO40SY SC; -FURO20TA3 PO; -LEVO500T91 PO; -LOSA-535 PO; -LOVA40TA72 PO; -METO1TAB9 PO; +NIFE1TAB31 PO; +NITR-87 PO
[2024-08-31 08:51] LABS: Basophils # (auto) 0.1 10 ^3/uL (0-0.2); Basophils % (auto) 0.7 % (0.0-2.0); Eosinophils # (auto) 0.4 10 ^3/uL (0-0.8); Eosinophils % (auto) 4.2 % (0.0-7.0); Hematocrit 36.1 % (36.0-46.0); Hemoglobin 12.1 g/dL (12.2-16.2); Lymphocytes # (auto) 2.6 10 ^3/uL (0.4-5.4); Lymphocytes % (auto) 30.4 % (10.0-50.0); Mean Corpuscular Hgb Conc. 33.5 g/dL (32.0-36.0); Mean Corpuscular Volume 92.5 fL (80.0-100.0); Monocytes # (auto) 0.5 10 ^3/uL (0-1.3); Monocytes % (auto) 5.9 % (0.0-12.0); Neutrophils # (auto) 5.1 10 ^3/uL (1.6-8.6); Neutrophils % (auto) 58.8 % (37.0-80.0); Platelet Count (auto) 269 10^3/uL (140-450); Red Blood Cells 3.91 10^6/uL (4.0-5.20); Red Cell Distribution Width 13.8 % (11.8-14.3); White Blood Cell 8.7 10^3/uL (4.4-10.8)
[2024-08-31 09:15] LABS: Alanine Aminotransferase 29 U/L (7-40); Albumin 4.1 g/dL (3.2-4.8); Alkaline Phosphatase 89 U/L (46-116); Anion Gap 11 (5-15); Aspartate Aminotransferase 24 U/L (13-40); BUN/Creatinine Ratio 25.8 (10.0-20.0); Carbon Dioxide 23 mmol/L (20-31); Chloride 105 mmol/L (98-107); Glucose 81 mg/dL (74-106); LDL Cholesterol 45 mg/dL (< 100); Potassium 3.9 mmol/L (3.5-5.1); Sodium 139 mmol/L (136-145); Triglycerides 142 mg/dL (< 150)
[2024-08-31 09:16] LABS: Bilirubin, Total 0.4 mg/dL (0.2-1.0); Cholesterol 118 mg/dL (< 200); HDL Cholesterol 50 mg/dL (40-59); Total Protein 7.1 g/dL (5.7-8.2)
[2024-08-31 09:21] LABS: Blood Urea Nitrogen 25 mg/dL (9-23); Calcium 10.4 mg/dL (8.7-10.4)
== END | disposition home or self-care (01) ==
LOC: LAB 08:34
PROVIDERS: ATTEND Internal Medicine
DX: I10 Essential (primary) hypertension (principal); E11.9 Type 2 diabetes mellitus without complications; R42 Dizziness and giddiness; E78.5 Hyperlipidemia, unspecified; Z79.899 Other long term (current) drug therapy
CPT/HCPCS: 36415; 80053; 80061; 82306; 82607; 83036; 84443; 85025

== ENCOUNTER → 2024-11-15 | Outpatient (CLI) | payer OTHER, MEDICAID ==
[2024-11-15 09:23] LABS: Chloride 106 mmol/L (98-107); Sodium 142 mmol/L (136-145)
[2024-11-15 09:24] LABS: Anion Gap 11 (5-15); Carbon Dioxide 25 mmol/L (20-31)
[2024-11-15 09:31] LABS: Blood Urea Nitrogen 20 mg/dL (9-23)
[2024-11-15 09:36] LABS: Calcium 10.4 mg/dL (8.7-10.4); Glucose 108 mg/dL (74-106)
== END | disposition home or self-care (01) ==
LOC: LAB 08:42
PROVIDERS: ATTEND Internal Medicine
DX: E11.65 Type 2 diabetes mellitus with hyperglycemia (principal); R42 Dizziness and giddiness
CPT/HCPCS: 36415; 80048; 83036

== ENCOUNTER → 2025-03-23 | Outpatient (CLI) | payer OTHER, MEDICAID ==
[2025-03-23 09:17] LABS: Hematocrit 34.2 % (36.0-46.0); Hemoglobin 11.7 g/dL (12.2-16.2); Mean Corpuscular Hemoglobin 31.1 pg (28.0-32.0); Mean Corpuscular Volume 90.9 fL (80.0-100.0); Nucleated Red Blood Cells % 0.0 %
[2025-03-23 09:35] LABS: Alanine Aminotransferase 28 U/L (7-40); Calcium 10.4 mg/dL (8.7-10.4); Carbon Dioxide 24 mmol/L (20-31); Chloride 104 mmol/L (98-107); Potassium 4.1 mmol/L (3.5-5.1); Sodium 141 mmol/L (136-145); Triglycerides 122 mg/dL (< 150)
[2025-03-23 09:36] LABS: Albumin 4.6 g/dL (3.2-4.8); Anion Gap 13 (5-15); BUN/Creatinine Ratio 18.1 (10.0-20.0); Bilirubin, Total 0.4 mg/dL (0.2-1.0); Blood Urea Nitrogen 21 mg/dL (9-23); Cholesterol 134 mg/dL (< 200); HDL Cholesterol 59 mg/dL (40-59); Total Protein 7.6 g/dL (5.7-8.2)
[2025-03-23 09:41] LABS: Alkaline Phosphatase 130 U/L (46-116); Glucose 206 mg/dL (74-106)
[2025-03-23 11:08] LABS: Urine Protein, UAD 1+ (Negative)
[2025-03-23 11:48] LABS: Microalb/Creat Ratio, Urine 1947.0
== END | disposition home or self-care (01) ==
LOC: LAB 08:41
PROVIDERS: ATTEND Internal Medicine
DX: E11.22 Type 2 diabetes mellitus with diabetic chronic kidney disease (principal); N18.2 Chronic kidney disease, stage 2 (mild); E78.5 Hyperlipidemia, unspecified; Z12.11 Encounter for screening for malignant neoplasm of colon; Z00.01 Encounter for general adult medical examination with abnormal findings; D34 Benign neoplasm of thyroid gland
CPT/HCPCS: 36415; 80053; 80061; 81001; 82043; 82274; 82570; 83036; 84439; 84443; 85025